=== PATIENT | male | born 1945 | race Caucasian/White ===

== ENCOUNTER 2018-05-14 14:29 | Inpatient (IN) | payer OTHER ==
[~2018-05-14] VITALS: Ht 175.3 cm; Wt 77.1 kg
--- OUTSIDE RECORDS SUMMARY | 2018-05-14 14:32 | XMS REPORT ---
[facility] Address Unknown Phone Unavailable Care Team Providers Care Travel Registered Nurse Nicu Name Role Phone JUSTYN RAYMOND Unavailable Unavailable ISRAEL PRABHAKAR Unavailable Unavailable Problems This patient has no known problems. Allergies, Adverse Reactions, Alerts This patient has no known allergies or adverse reactions. Medications This patient has no known medications. Results Test Description Test Time Test Comments Text Results Atomic Results Result Comments POCT-ACT 2017-07-04 11:54:00 ACTIVATED CLOTTING TIME (BEAKER) (test mlei=428) 120 sec TESTED AT [place] [address] [id number] 10:43:00* Test Item Value Reference Range Comments ACTIVATED CLOTTING TIME (BEAKER) (test jqwu=176) 301 sec TESTED AT [place] [id number] 10:17:00* Test Item Value Reference Range Comments ACTIVATED CLOTTING TIME (BEAKER) (test qwah=531) 307 sec TESTED AT [place] [id number] 10:17:00* Test Item Value Reference Range Comments ACTIVATED CLOTTING TIME (BEAKER) (test usnz=347) 318 sec TESTED AT [place] [id number] 10:17:00* Test Item Value Reference Range Comments ACTIVATED CLOTTING TIME (BEAKER) (test wyge=700) 296 sec TESTED AT [place] [address] [id number] 10:17:00* Test Item Value Reference Range Comments ACTIVATED CLOTTING TIME (BEAKER) (test mokq=407) 257 sec TESTED AT [place] [address] [id number] 06:55:00* Test Item Value Reference Range Comments MAGNESIUM (BEAKER) (test oauf=524) 1.9 mg/dL 1.6-2.6 BASIC METABOLIC [id number] 06:55:00* Test Item Value Reference Range Comments SODIUM (BEAKER) (test dzrn=066) 140 meq/L 136-145 POTASSIUM (BEAKER) (test mrlv=424) 4.0 meq/L 3.5-5.1 CHLORIDE (BEAKER) (test ncso=811) 103 meq/L 98-107 CO2 (BEAKER) (test hfvm=834) 29 meq/L 22-29 BLOOD UREA NITROGEN (BEAKER) (test vkaf=795) 22 mg/dL 7-21 CREATININE (BEAKER) (test licl=251) 1.03 mg/dL 0.57-1.25 GLUCOSE RANDOM (BEAKER) (test qtto=903) 105 mg/dL 70-105 CALCIUM (BEAKER) (test qqpy=932) 8.9 mg/dL 8.4-10.2 EGFR (BEAKER) (test ijkc=3805) 71 mL/min/1.73 sq m ESTIMATED GFR IS NOT ACCURATE CREATININE CLEARANCE IN PREDICTING GLOMERULAR FILTRATION RATE. ESTIMATED GFR IS NOT APPLICABLE FOR DIALYSIS PATIENTS. PROTHROMBIN [id number] 06:46:00* Test Item Value Reference Range Comments PROTIME (BEAKER) (test vtga=981) 14.7 seconds 11.7-14.7 INR (BEAKER) (test dbxm=835) 1.2 <=5.9 RECOMMENDED COUMADIN/WARFARIN INR THERAPY RANGESSTANDARD DOSE: 2.0 - 3.0 Inclu alyson: PROPHYLAXIS for venous thrombosis, systemic embolization; TREATMENT for fatimah ous thrombosis and/or pulmonary embolus.HIGH RISK: Target INR is 2.5-3.5 for pat ients with mechanical heart valves.Within 24 hours, if on CoumadinCBC W/PLT COUNT & AUTO [id number] 06:36:00* Test Item Value Reference Range Comments WHITE BLOOD CELL COUNT (BEAKER) (test dghq=269) 7.9 K/ L 3.5-10.5 RED BLOOD CELL COUNT (BEAKER) (test bfqf=917) 4.16 M/ L 4.63-6.08 HEMOGLOBIN (BEAKER) (test hyei=753) 13.5 GM/DL 13.7-17.5 HEMATOCRIT (BEAKER) (test kzjl=547) 39.3 % 40.1-51.0 MEAN CORPUSCULAR VOLUME (BEAKER) (test hjpb=328) 94.5 fL 79.0-92.2 MEAN CORPUSCULAR HEMOGLOBIN (BEAKER) (test rtak=094) 32.5 pg 25.7-32.2 MEAN CORPUSCULAR HEMOGLOBIN CONC (BEAKER) (test tobs=267) 34.4 GM/DL 32.3-36.5 RED CELL DISTRIBUTION WIDTH (BEAKER) (test oylm=136) 12.1 % 11.6-14.4 PLATELET COUNT (BEAKER) (test iltr=538) 299 K/CU MM 150-450 MEAN PLATELET VOLUME (BEAKER) (test spzo=959) 8.7 fL 9.4-12.4 NUCLEATED RED BLOOD CELLS (BEAKER) (test mhwk=834) 0 /100 WBC 0-0 NEUTROPHILS RELATIVE PERCENT (BEAKER) (test xgtj=639) 65 % LYMPHOCYTES RELATIVE PERCENT (BEAKER) (test elxi=971) 26 % MONOCYTES RELATIVE PERCENT (BEAKER) (test iuyq=157) 8 % EOSINOPHILS RELATIVE PERCENT (BEAKER) (test jgxj=762) 0 % BASOPHILS RELATIVE PERCENT (BEAKER) (test rmru=494) 0 % NEUTROPHILS ABSOLUTE COUNT (BEAKER) (test iqkt=192) 5.12 K/ L 1.78-5.38 LYMPHOCYTES ABSOLUTE COUNT (BEAKER) (test cijg=025) 2.04 K/ L 1.32-3.57 MONOCYTES ABSOLUTE COUNT (BEAKER) (test stba=813) 0.62 K/ L 0.30-0.82 EOSINOPHILS ABSOLUTE COUNT (BEAKER) (test zmdl=955) 0.03 K/ L 0.04-0.54 BASOPHILS ABSOLUTE COUNT (BEAKER) (test uqyr=175) 0.02 K/ L 0.01-0.08 IMMATURE GRANULOCYTES-RELATIVE PERCENT (BEAKER) (test vlsv=4409) 1 % 0-1 CT, HEART, [id number] 15:20:00Reason for Exam:->sob, a-fibAddendum BeginsREPORT STATUS:A Addendum: I agree with the previously described non vascular findings by Dr. Ordaz. Signed: Abe Chang MDReport Verified Date/Time: 07/03/2017 15:20:50 Reading Location: [place] [address] Angio Body Reading RoomAddendum EndsFINAL REPORT CT ang iography of the pulmonary veins, 03 July 2017 INDICATION: This is a 72 ye ars old male with history of atrial fibrillation presented here for pulmonary v ein ostial mapping. This study is performed in an attempt to avoid invasive proc edure. TECHNIQUE: Spiral acquisition during intravenous contrast administration using a [employer] multidetector cardiac CT scanner without prospective ECG trigge ring. Multiplanar reconstructions were performed interactively by the interpret ing physician using an independent (smsPREP) workstation. Please refer to the con trast sheet scanned in the EPIC system for the amount and route of contrast give n. This exam was performed according to our departmental dose-optimisation progr amme, which includes automated exposure control, adjustment of the mA and/or kV according to patient size and/or use of iterative reconstruction technique. Dose modulation, iterative reconstruction, and/or weight based adjustment of the mA/ kV was utilized to reduce the radiation dose to as low as reasonably achievable. FINDINGS: VASCULAR: The pericardium appears normal. No pericardial effusion is identified. The central pulmonary artery is normal in calibre. The thoracic aor ta is normal in course, calibre, and contour. There is no evidence for acute aor tic pathology. The arch vessel branching pattern is normal, and the origins of t he arch branch vessels are all widely patent. The cardiac chambers demonstrate n ormal atrioventricular and ventriculoarterial concordance, and systemic and pulm onary venous return. The left ventricle is normal in size, and no abnormal becca s are identified. The coronary artery origins are normal. Scattered calcificat ion is seen in the LAD territory. Left atrial enlargement is identified. Right a trial enlargement is also seen. Incidental note, prominent prominent khadijah term inalis is identified, a common finding. No thrombus is visualized in the left at rial appendage. Pulmonary vein morphology is normal with pairs of pulmonary vein s on each side of the left atrium. There is no evidence for pulmonary vein steno sis. Quantitative pulmonary vein ostial mapping (measured utilizing MPR analysis ) is as follows: Pulmonary vein Major axis Minor axis Cross-sectional area Rig ht upper 18 mm 17 mm 2.4 mr9Ojjti lower 16 mm 14 mm 1.7 oy9Bgbe upper 16 mm 12 mm 1.5 nl1Nwfp lower 18 mm 9 mm 1.3 cm2 NON-VASCULAR: The visualised thyroid gland appears unrem arkable. The chest wall and mediastinum appears normal. No significant adenopath y is identified in the mediastinum. In the lung windows, no obvious endobronchia l lesion is seen and no pleural effusion is identified. Some apical scarring is present. Some dependent changes are seen in the lung bases. No suspicious pulmon argenis nodule is noted. Limited images of the upper abdomen reveals no gross abnorm ality. Similar appearing liver cyst is identified in the anterior aspect of the right hepatic lobe, image 45, measures 4.2 x 4.1 cm in diameter. No enhancement is seen after contrast administration. In the bony windows, no acute bony pathol ogy is seen. IMPRESSIONS: 1. The left atrium is prominent. The left atrial joel endage is well identified and no thrombus is present. Coronary atherosclerosis seen in the LAD territory. 2. Pulmonary vein morphology is normal with pairs of pulmonary veins bilaterally. There is no evidence for pulmonary vein stenosis. Quantitative pulmonary vein ostial mapping is as noted above. 3. Normal thorac ic aorta. 4. No acute pulmonary pathology. 5. Other findings as described abov e. 6. An addendum will be dictated regarding the non-vascular findings by the C onsultant Radiologist. Signed: Morris Ordaz MDReport Verified Date/Time: 0 07/03/2017 10:37:36 Reading Location: [place] [address] Cardiology MRI [facility] [place] [place] signed by: ABE CHANG MD on 07/03/2017 03:20 PM [id number] 09:43:00* Test Item Value Reference Range Comments PARTIAL THROMBOPLASTIN TIME (BEAKER) (test btzl=635) 25.2 seconds 22.5-36.0 PROTHROMBIN TIME/[id number] 09:42:00* Test Item Value Reference Range Comments PROTIME (BEAKER) (test coen=221) 14.2 seconds 11.7-14.7 INR (BEAKER) (test nols=160) 1.1 <=5.9 RECOMMENDED COUMADIN/WARFARIN INR THERAPY RANGESSTANDARD DOSE: 2.0 - 3.0 Inclu alyson: PROPHYLAXIS for venous thrombosis, systemic embolization; TREATMENT for fatimah ous thrombosis and/or pulmonary embolus.HIGH RISK: Target INR is 2.5-3.5 for pat ients with mechanical heart valves.[id number] 09:41:00* Test Item Value Reference Range Comments SODIUM (BEAKER) (test lpej=782) 142 meq/L 136-145 POTASSIUM (BEAKER) (test vyco=885) 4.5 meq/L 3.5-5.1 CHLORIDE (BEAKER) (test vggf=256) 102 meq/L 98-107 CO2 (BEAKER) (test puuy=669) 31 meq/L 22-29 BUN AND [id number] 09:41:00* Test Item Value Reference Range Comments BLOOD UREA NITROGEN (BEAKER) (test spmr=567) 21 mg/dL 7-21 CREATININE (BEAKER) (test outk=050) 1.12 mg/dL 0.57-1.25 EGFR (BEAKER) (test cipv=9002) 64 mL/min/1.73 sq m ESTIMATED GFR IS NOT ACCURATE CREATININE CLEARANCE IN PREDICTING GLOMERULAR FILTRATION RATE. ESTIMATED GFR IS NOT APPLICABLE FOR DIALYSIS PATIENTS. CBC (HEMOGRAM ONLY)2017-07-03 09:22:00* Test Item Value Reference Range Comments WHITE BLOOD CELL COUNT (BEAKER) (test qqdt=869) 8.4 K/ L 3.5-10.5 RED BLOOD CELL COUNT (BEAKER) (test kwcz=751) 4.58 M/ L 4.63-6.08 HEMOGLOBIN (BEAKER) (test yfxh=861) 14.8 GM/DL 13.7-17.5 HEMATOCRIT (BEAKER) (test pqtw=396) 43.1 % 40.1-51.0 MEAN CORPUSCULAR VOLUME (BEAKER) (test abax=947) 94.1 fL 79.0-92.2 MEAN CORPUSCULAR HEMOGLOBIN (BEAKER) (test pvup=636) 32.3 pg 25.7-32.2 MEAN CORPUSCULAR HEMOGLOBIN CONC (BEAKER) (test whjg=572) 34.3 GM/DL 32.3-36.5 RED CELL DISTRIBUTION WIDTH (BEAKER) (test vfic=895) 12.0 % 11.6-14.4 PLATELET COUNT (BEAKER) (test ogoq=683) 319 K/CU MM 150-450 MEAN PLATELET VOLUME (BEAKER) (test shmr=325) 8.6 fL 9.4-12.4 NUCLEATED RED BLOOD CELLS (BEAKER) (test faqa=985) 0 /100 WBC 0-0 BLOOD [id number] 05:02:00* Test Item Value Reference Range Comments CULTURE (BEAKER) (test pkae=6147) No growth in 5 days BLOOD [id number] 05:02:00* Test Item Value Reference Range Comments CULTURE (BEAKER) (test saqx=9247) No growth in 5 days STOOL CULTURE + SHIGA [id number] 12:38:00* Test Item Value Reference Range Comments CULTURE (BEAKER) (test ucqd=6970) No Salmonella, Shigella or Campylobacter isolated URINE [id number] 12:36:00* Test Item Value Reference Range Comments CULTURE (BEAKER) (test codj=2860) >100,000 col/mL skin virginie HEPATIC FUNCTION [id number] 05:41:00* Test Item Value Reference Range Comments TOTAL PROTEIN (BEAKER) (test fjok=284) 5.2 gm/dL 6.0-8.3 Specimen slightly hemolyzed ALBUMIN (BEAKER) (test hlrr=6712) 2.9 g/dL 3.5-5.0 Specimen slightly hemolyzed BILIRUBIN TOTAL (BEAKER) (test cwgg=376) 1.0 mg/dL 0.2-1.2 Specimen slightly hemolyzed BILIRUBIN DIRECT (BEAKER) (test hqdr=273) 0.4 mg/dL 0.1-0.5 Specimen slightly hemolyzed ALKALINE PHOSPHATASE (BEAKER) (test ughj=148) 64 U/L 40-150 AST (SGOT) (BEAKER) (test gobu=855) 40 U/L 5-34 Specimen slightly hemolyzed ALT (SGPT) (BEAKER) (test cjtm=144) 17 U/L 6-55 Specimen slightly hemolyzed [id number] 05:31:00* Test Item Value Reference Range Comments MAGNESIUM (BEAKER) (test nrkf=885) 1.9 mg/dL 1.6-2.6 Specimen slightly hemolyzed [id number] 05:31:00* Test Item Value Reference Range Comments PHOSPHORUS (BEAKER) (test zzvv=312) 2.7 mg/dL 2.3-4.7 Specimen slightly hemolyzed BASIC METABOLIC [id number] 05:31:00* Test Item Value Reference Range Comments SODIUM (BEAKER) (test ubnn=322) 139 meq/L 136-145 POTASSIUM (BEAKER) (test ydxn=898) 3.9 meq/L 3.5-5.1 Specimen slightly hemolyzed CHLORIDE (BEAKER) (test zkvt=225) 107 meq/L 98-107 CO2 (BEAKER) (test ezfv=510) 25 meq/L 22-29 BLOOD UREA NITROGEN (BEAKER) (test uoes=880) 14 mg/dL 7-21 CREATININE (BEAKER) (test gphy=929) 1.07 mg/dL 0.57-1.25 Specimen slightly hemolyzed GLUCOSE RANDOM (BEAKER) (test bcgw=751) 98 mg/dL 70-105 CALCIUM (BEAKER) (test przy=441) 8.2 mg/dL 8.4-10.2 EGFR (BEAKER) (test kzdz=9808) 68 mL/min/1.73 sq m ESTIMATED GFR IS NOT ACCURATE CREATININE CLEARANCE IN PREDICTING GLOMERULAR FILTRATION RATE. ESTIMATED GFR IS NOT APPLICABLE FOR DIALYSIS PATIENTS. B-TYPE NATRIURETIC FACTOR (BNP)2017-05-25 05:21:00* Test Item Value Reference Range Comments B-TYPE NATRIURETIC PEPTIDE (BEAKER) (test xthy=981) 52 pg/mL 0-100 CBC W/PLT COUNT & AUTO [id number] 05:04:00* Test Item Value Reference Range Comments WHITE BLOOD CELL COUNT (BEAKER) (test sovo=358) 8.6 K/ L 3.5-10.5 RED BLOOD CELL COUNT (BEAKER) (test lfef=258) 3.59 M/ L 4.63-6.08 HEMOGLOBIN (BEAKER) (test uuup=232) 11.7 GM/DL 13.7-17.5 HEMATOCRIT (BEAKER) (test wfxk=215) 33.9 % 40.1-51.0 MEAN CORPUSCULAR VOLUME (BEAKER) (test rrcv=484) 94.4 fL 79.0-92.2 MEAN CORPUSCULAR HEMOGLOBIN (BEAKER) (test duqj=544) 32.6 pg 25.7-32.2 MEAN CORPUSCULAR HEMOGLOBIN CONC (BEAKER) (test jcsy=223) 34.5 GM/DL 32.3-36.5 RED CELL DISTRIBUTION WIDTH (BEAKER) (test qvzb=044) 11.9 % 11.6-14.4 PLATELET COUNT (BEAKER) (test dmhb=033) 169 K/CU MM 150-450 MEAN PLATELET VOLUME (BEAKER) (test uadh=377) 9.2 fL 9.4-12.4 NUCLEATED RED BLOOD CELLS (BEAKER) (test bfbn=706) 0 /100 WBC 0-0 NEUTROPHILS RELATIVE PERCENT (BEAKER) (test nvxg=166) 75 % LYMPHOCYTES RELATIVE PERCENT (BEAKER) (test coxk=899) 16 % MONOCYTES RELATIVE PERCENT (BEAKER) (test fyhq=455) 7 % EOSINOPHILS RELATIVE PERCENT (BEAKER) (test vkxi=692) 1 % BASOPHILS RELATIVE PERCENT (BEAKER) (test ypgg=655) 0 % NEUTROPHILS ABSOLUTE COUNT (BEAKER) (test ohen=679) 6.49 K/ L 1.78-5.38 LYMPHOCYTES ABSOLUTE COUNT (BEAKER) (test zseg=676) 1.41 K/ L 1.32-3.57 MONOCYTES ABSOLUTE COUNT (BEAKER) (test rjam=594) 0.62 K/ L 0.30-0.82 EOSINOPHILS ABSOLUTE COUNT (BEAKER) (test hmvl=324) 0.04 K/ L 0.04-0.54 BASOPHILS ABSOLUTE COUNT (BEAKER) (test ghwx=541) 0.03 K/ L 0.01-0.08 IMMATURE GRANULOCYTES-RELATIVE PERCENT (BEAKER) (test mgyx=2242) 0 % 0-1 SHIGA TOXIN [id number] 14:40:00* Test Item Value Reference Range Comments SHIGA TOXIN 1 (BEAKER) (test auuf=7721) Not detected Not detected SHIGA TOXIN 2 (BEAKER) (test sdox=8212) Not detected Not detected RAD, CHEST, 1 VIEW, NON [id number] 12:57:00Reason for exam:->sobFINAL REPORT HISTORY : sob. Comparison: None Comment: Single portable view of the chest was obtained. The cardiac silhouette size is upper limits of normal. No pneumothorax or pleural effusion is seen. Some fixation hardware is seen in the right shoulder. There is some patchy left basilar airspace disease which may represent atelectasis. Pneumonitis or aspiration cannot be excluded. Signed: Bautista Barnard MDReport Verified Date/Time: 05/24/2017 12:57:49 Reading Location: [address] Reading Room L PATH [id number] 10:53:00* Test Item Value Reference Range Comments PATHOGEN EXAM CHARGED (BEAKER) (test qimv=7810) Done [id number] 07:58:00* Test Item Value Reference Range Comments PHOSPHORUS (BEAKER) (test txrg=560) 2.1 mg/dL 2.3-4.7 [id number] 07:58:00* Test Item Value Reference Range Comments MAGNESIUM (BEAKER) (test kxov=922) 1.7 mg/dL 1.6-2.6 BASIC METABOLIC [id number] 07:58:00* Test Item Value Reference Range Comments SODIUM (BEAKER) (test uxns=094) 140 meq/L 136-145 POTASSIUM (BEAKER) (test xpjv=634) 4.0 meq/L 3.5-5.1 CHLORIDE (BEAKER) (test ipro=132) 109 meq/L 98-107 CO2 (BEAKER) (test kqqo=478) 24 meq/L 22-29 BLOOD UREA NITROGEN (BEAKER) (test rxst=340) 20 mg/dL 7-21 CREATININE (BEAKER) (test iemc=773) 1.11 mg/dL 0.57-1.25 GLUCOSE RANDOM (BEAKER) (test svap=072) 96 mg/dL 70-105 CALCIUM (BEAKER) (test zrvc=822) 8.1 mg/dL 8.4-10.2 EGFR (BEAKER) (test kqeu=5141) 65 mL/min/1.73 sq m ESTIMATED GFR IS NOT ACCURATE CREATININE CLEARANCE IN PREDICTING GLOMERULAR FILTRATION RATE. ESTIMATED GFR IS NOT APPLICABLE FOR DIALYSIS PATIENTS. CBC W/PLT COUNT & AUTO [id number] 07:44:00* Test Item Value Reference Range Comments WHITE BLOOD CELL COUNT (BEAKER) (test vpci=252) 12.1 K/ L 3.5-10.5 RED BLOOD CELL COUNT (BEAKER) (test ymme=515) 3.67 M/ L 4.63-6.08 HEMOGLOBIN (BEAKER) (test bzep=145) 11.9 GM/DL 13.7-17.5 HEMATOCRIT (BEAKER) (test byhu=291) 35.1 % 40.1-51.0 MEAN CORPUSCULAR VOLUME (BEAKER) (test dntq=064) 95.6 fL 79.0-92.2 MEAN CORPUSCULAR HEMOGLOBIN (BEAKER) (test wmat=471) 32.4 pg 25.7-32.2 MEAN CORPUSCULAR HEMOGLOBIN CONC (BEAKER) (test jtfi=840) 33.9 GM/DL 32.3-36.5 RED CELL DISTRIBUTION WIDTH (BEAKER) (test tzpg=866) 12.2 % 11.6-14.4 PLATELET COUNT (BEAKER) (test erms=073) 174 K/CU MM 150-450 MEAN PLATELET VOLUME (BEAKER) (test sjbx=953) 9.5 fL 9.4-12.4 NUCLEATED RED BLOOD CELLS (BEAKER) (test wjgp=366) 0 /100 WBC 0-0 NEUTROPHILS RELATIVE PERCENT (BEAKER) (test srjy=403) 81 % LYMPHOCYTES RELATIVE PERCENT (BEAKER) (test artz=622) 11 % MONOCYTES RELATIVE PERCENT (BEAKER) (test ccpa=089) 7 % EOSINOPHILS RELATIVE PERCENT (BEAKER) (test limv=208) 0 % BASOPHILS RELATIVE PERCENT (BEAKER) (test gjsi=229) 0 % NEUTROPHILS ABSOLUTE COUNT (BEAKER) (test kzhu=947) 9.86 K/ L 1.78-5.38 LYMPHOCYTES ABSOLUTE COUNT (BEAKER) (test rqdx=232) 1.29 K/ L 1.32-3.57 MONOCYTES ABSOLUTE COUNT (BEAKER) (test cuko=388) 0.88 K/ L 0.30-0.82 EOSINOPHILS ABSOLUTE COUNT (BEAKER) (test tsqq=534) 0.02 K/ L 0.04-0.54 BASOPHILS ABSOLUTE COUNT (BEAKER) (test sywz=073) 0.02 K/ L 0.01-0.08 IMMATURE GRANULOCYTES-RELATIVE PERCENT (BEAKER) (test fltv=5054) 1 % 0-1 [id number] 18:11:00* Test Item Value Reference Range Comments PHOSPHORUS (BEAKER) (test rkmr=087) 2.7 mg/dL 2.3-4.7 [id number] 18:11:00* Test Item Value Reference Range Comments MAGNESIUM (BEAKER) (test sbeq=319) 1.8 mg/dL 1.6-2.6 BASIC METABOLIC [id number] 18:11:00* Test Item Value Reference Range Comments SODIUM (BEAKER) (test lgqv=583) 140 meq/L 136-145 POTASSIUM (BEAKER) (test obdq=444) 3.7 meq/L 3.5-5.1 CHLORIDE (BEAKER) (test xvwm=387) 108 meq/L 98-107 CO2 (BEAKER) (test sbgr=278) 24 meq/L 22-29 BLOOD UREA NITROGEN (BEAKER) (test hdcm=769) 25 mg/dL 7-21 CREATININE (BEAKER) (test oybw=274) 1.29 mg/dL 0.57-1.25 GLUCOSE RANDOM (BEAKER) (test ggih=649) 113 mg/dL 70-105 CALCIUM (BEAKER) (test mzyk=686) 8.5 mg/dL 8.4-10.2 EGFR (BEAKER) (test jkbv=0057) 55 mL/min/1.73 sq m ESTIMATED GFR IS NOT ACCURATE CREATININE CLEARANCE IN PREDICTING GLOMERULAR FILTRATION RATE. ESTIMATED GFR IS NOT APPLICABLE FOR DIALYSIS PATIENTS. CBC W/PLT COUNT & AUTO [id number] 17:42:00* Test Item Value Reference Range Comments WHITE BLOOD CELL COUNT (BEAKER) (test tnpn=554) 16.3 K/ L 3.5-10.5 RED BLOOD CELL COUNT (BEAKER) (test wcqx=370) 4.00 M/ L 4.63-6.08 HEMOGLOBIN (BEAKER) (test rmfp=816) 13.0 GM/DL 13.7-17.5 HEMATOCRIT (BEAKER) (test huxu=593) 37.7 % 40.1-51.0 MEAN CORPUSCULAR VOLUME (BEAKER) (test qgju=630) 94.3 fL 79.0-92.2 MEAN CORPUSCULAR HEMOGLOBIN (BEAKER) (test tosi=596) 32.5 pg 25.7-32.2 MEAN CORPUSCULAR HEMOGLOBIN CONC (BEAKER) (test dcll=238) 34.5 GM/DL 32.3-36.5 RED CELL DISTRIBUTION WIDTH (BEAKER) (test ivod=855) 12.2 % 11.6-14.4 PLATELET COUNT (BEAKER) (test yzzz=632) 200 K/CU MM 150-450 MEAN PLATELET VOLUME (BEAKER) (test vubf=874) 9.0 fL 9.4-12.4 NUCLEATED RED BLOOD CELLS (BEAKER) (test zhih=939) 0 /100 WBC 0-0 NEUTROPHILS RELATIVE PERCENT (BEAKER) (test azsa=195) 83 % LYMPHOCYTES RELATIVE PERCENT (BEAKER) (test tumi=572) 9 % MONOCYTES RELATIVE PERCENT (BEAKER) (test tvbb=313) 8 % EOSINOPHILS RELATIVE PERCENT (BEAKER) (test tjvy=205) 0 % BASOPHILS RELATIVE PERCENT (BEAKER) (test elpg=302) 0 % NEUTROPHILS ABSOLUTE COUNT (BEAKER) (test hqgg=625) 13.44 K/ L 1.78-5.38 LYMPHOCYTES ABSOLUTE COUNT (BEAKER) (test jsfw=903) 1.39 K/ L 1.32-3.57 MONOCYTES ABSOLUTE COUNT (BEAKER) (test gpkb=056) 1.27 K/ L 0.30-0.82 EOSINOPHILS ABSOLUTE COUNT (BEAKER) (test ygom=243) 0.00 K/ L 0.04-0.54 BASOPHILS ABSOLUTE COUNT (BEAKER) (test unjf=878) 0.02 K/ L 0.01-0.08 IMMATURE GRANULOCYTES-RELATIVE PERCENT (BEAKER) (test wxqq=4329) 1 % 0-1 CLOSTRIDIUM DIFFICILE TOXIN [id number] 13:48:00* Test Item Value Reference Range Comments CLOSTRIDIUM DIFFICILE TOXIN, PCR (BEAKER) (test nrps=8012) Not Detected Not Detected This qualitative real-time polymerase chain reaction assay detects the tcdB gene , encoded on the C.difficile pathogenicity locus (PaLoc). The product of tcdB, toxin B, is a cytotoxin essential for causing C.difficile-associated disease (CD AD) and is found in virtually all toxigenic C.difficile.This assay is performed for patients suspected of having either community-acquired or nosocomial CDAD. Accordingly, only symptomatic patients should be tested and formed stools will b e rejected unless ileus is present (i.e., specified when ordering). Patients ma y be colonized with toxigenic C.difficile strains not causing active disease; th erefore, clinical correlation is needed when deciding how to manage patients wit h a positive test result.The assay has not been validated as a test of cure as a mplifiable nucleic acid may persist after effective treatment; therefore, follow -up testing of a positive result is not recommended.URINALYSIS W/ MICROSCOPIC 2017-05-23 12:47:00* Test Item Value Reference Range Comments COLOR (BEAKER) (test hjft=774) Yellow CLARITY (BEAKER) (test kwyi=191) Clear SPECIFIC GRAVITY UA (BEAKER) (test lebf=924) 1.020 1.001-1.035 PH UA (BEAKER) (test tjoh=084) 5.0 5.0-8.0 PROTEIN UA (BEAKER) (test gzso=173) 20 mg/dL Negative GLUCOSE UA (BEAKER) (test ngks=398) Negative Negative KETONES UA (BEAKER) (test mgyh=316) Trace Negative BILIRUBIN UA (BEAKER) (test hcnj=901) Negative Negative BLOOD UA (BEAKER) (test yiyz=648) Negative Negative NITRITE UA (BEAKER) (test bbev=657) Negative Negative LEUKOCYTE ESTERASE UA (BEAKER) (test hgrn=648) Negative Negative UROBILINOGEN UA (BEAKER) (test eymd=493) 0.2 mg/dL 0.2-1.0 RBC UA (BEAKER) (test bkvp=235) 0 /HPF WBC UA (BEAKER) (test errg=324) 1 /HPF SQUAMOUS EPITHELIAL (BEAKER) (test alnf=589) < /HPF HYALINE CASTS (BEAKER) (test neem=488) 1 /LPF SOURCE(BEAKER) (test zcfp=1520) Urine, Straight Catheter PT/[id number] 18:19:00* Test Item Value Reference Range Comments PROTIME (BEAKER) (test cukr=845) 11.0 seconds 9.8-12.0 INR (BEAKER) (test rfxl=965) 1.0 <=5.9 PARTIAL THROMBOPLASTIN TIME (BEAKER) (test ebrj=608) 20.5 seconds 25.8-34.5 RECOMMENDED COUMADIN/WARFARIN INR THERAPY RANGESSTANDARD DOSE: 2.0 - 3.0 Inclu alyson: PROPHYLAXIS for venous thrombosis, systemic embolization; TREATMENT for fatimah ous thrombosis and/or pulmonary embolus.HIGH RISK: Target INR is 2.5-3.5 for pat ients with mechanical heart valves.URINALYSIS W/ [id number] 17:40:00 * Test Item Value Reference Range Comments COLOR (BEAKER) (test xfko=504) Dark Yellow CLARITY (BEAKER) (test ncrn=952) Slightly Cloudy SPECIFIC GRAVITY UA (BEAKER) (test myge=478) 1.025 1.001-1.035 PH UA (BEAKER) (test cvlr=136) 5.0 5.0-8.0 PROTEIN UA (BEAKER) (test duso=727) >=300 mg/dL Negative GLUCOSE UA (BEAKER) (test zwvn=796) Negative Negative KETONES UA (BEAKER) (test sicu=749) 15 mg/dL Negative BILIRUBIN UA (BEAKER) (test vwrd=645) Positive Negative BLOOD UA (BEAKER) (test lqab=076) Trace Negative NITRITE UA (BEAKER) (test xtgz=834) Negative Negative LEUKOCYTE ESTERASE UA (BEAKER) (test auzp=311) Small Negative UROBILINOGEN UA (BEAKER) (test dqun=485) 1.0 mg/dL 0.2-1.0 BACTERIA (BEAKER) (test agxh=267) Moderate RBC UA-MANUAL (BEAKER) (test vutt=2175) <5 /HPF WBC UA-MANUAL (BEAKER) (test nagb=8425) 5-10 /HPF SQUAMOUS EPITHELIAL MANUAL (BEAKER) (test vdej=5273) 5-10 /HPF SOURCE(BEAKER) (test rmau=1283) Short sample.CBC W/PLT COUNT & AUTO [id number] 17:38:00* Test Item Value Reference Range Comments WHITE BLOOD CELL COUNT (BEAKER) (test vyrz=281) 22.1 10e3/ L 4.0-10.0 RED BLOOD CELL COUNT (BEAKER) (test xtcv=860) 5.36 10e6/ L 4.20-5.80 HEMOGLOBIN (BEAKER) (test idwx=045) 17.8 g/dL 13.0-16.8 HEMATOCRIT (BEAKER) (test lktx=081) 51.6 % 40.0-50.0 MEAN CORPUSCULAR VOLUME (BEAKER) (test ytrb=192) 96.3 fL 82.0-98.0 MEAN CORPUSCULAR HEMOGLOBIN (BEAKER) (test vnft=494) 33.1 pg 27.0-33.0 MEAN CORPUSCULAR HEMOGLOBIN CONC (BEAKER) (test yhqe=382) 34.4 g/dL 32.0-36.0 RED CELL DISTRIBUTION WIDTH (BEAKER) (test ekqd=259) 11.6 % 10.3-14.2 PLATELET COUNT (BEAKER) (test uhgy=928) 301 10e3/ L 150-430 MEAN PLATELET VOLUME (BEAKER) (test bzfg=941) 6.8 fL 6.5-10.5 NEUTROPHILS RELATIVE PERCENT (BEAKER) (test paxg=512) 83 % LYMPHOCYTES RELATIVE PERCENT (BEAKER) (test gsnj=803) 9 % MONOCYTES RELATIVE PERCENT (BEAKER) (test qycb=911) 6 % EOSINOPHILS RELATIVE PERCENT (BEAKER) (test mnme=975) 1 % BASOPHILS RELATIVE PERCENT (BEAKER) (test hhjl=395) 1 % NEUTROPHILS ABSOLUTE COUNT (BEAKER) (test ywpw=365) 18.28 10e3/ L 1.80-8.00 LYMPHOCYTES ABSOLUTE COUNT (BEAKER) (test wjyo=681) 2.07 10e3/ L 1.48-4.50 MONOCYTES ABSOLUTE COUNT (BEAKER) (test txbq=959) 1.21 10e3/ L 0.00-1.30 EOSINOPHILS ABSOLUTE COUNT (BEAKER) (test iwhp=977) 0.29 10e3/ L 0.00-0.50 BASOPHILS ABSOLUTE COUNT (BEAKER) (test afaz=064) 0.20 10e3/ L 0.00-0.20 BASIC METABOLIC [id number] 17:36:00* Test Item Value Reference Range Comments SODIUM (BEAKER) (test smkj=268) 140 meq/L 135-148 POTASSIUM (BEAKER) (test dvwh=419) 4.1 meq/L 3.6-5.5 CHLORIDE (BEAKER) (test yqsq=294) 101 meq/L 98-106 CO2 (BEAKER) (test bpeh=243) 22 meq/L 24-32 BLOOD UREA NITROGEN (BEAKER) (test eflk=176) 23 mg/dL 10-26 CREATININE (BEAKER) (test zpij=913) 1.52 mg/dL 0.50-1.20 GLUCOSE RANDOM (BEAKER) (test uouf=336) 173 mg/dL 70-110 CALCIUM (BEAKER) (test gvjy=272) 9.9 mg/dL 8.5-10.5 EGFR (BEAKER) (test fcff=8797) mL/min/1.73 sq m INSUFFICIENT CLINICAL DATA TO CALCULATE ESTIMATED GFR. HEPATIC FUNCTION [id number] 17:34:00* Test Item Value Reference Range Comments TOTAL PROTEIN (BEAKER) (test uwlm=634) 7.9 gm/dL 6.0-8.5 ALBUMIN (BEAKER) (test qnty=0583) 4.4 g/dL 3.5-5.0 BILIRUBIN TOTAL (BEAKER) (test ukie=281) 1.2 mg/dL 0.1-1.2 BILIRUBIN DIRECT (BEAKER) (test hmvh=396) 0.5 mg/dL 0.0-0.4 ALKALINE PHOSPHATASE (BEAKER) (test uytu=209) 214 U/L 30-115 AST (SGOT) (BEAKER) (test yjzj=351) 39 U/L 5-40 ALT (SGPT) (BEAKER) (test hnmn=878) 32 U/L 5-50 [id number] 17:34:00* Test Item Value Reference Range Comments LIPASE (BEAKER) (test dnpz=580) 252 U/L 40-240 CT, [id number] 17:23:00FINAL REPORT CT abdomen and pelvis without intravenous contrast. INDICATION: Flank pain, stone disease suspectedno oral contrast; no iv contrast COMPARISON: No prior studies available for comparison. TECHNIQUE: Multiple contiguous transaxial images of the abdomen and pelvis were obtained without intravenous contrast. This exam was performed according to our departmental dose optimization program which includes automated exposure control, adjustment of the mA and/or kV according to patient size and/or use of iterative reconstructive technique. FINDINGS: Lack of intravenous contrast limits evaluation of the parenchymal and vascular organs. The lung bases demonstrate mild atelectasis. The osseous structures demonstrate bilateral L5 spondylolysis with mild spondylolisthesis of L5 on S1 and associated degenerative changes. The unenhanced liver demonstrates a lobulated cyst in the hepatic dome measuring 4.6 x 4.9 cm. Another small cyst is seen in the caudate lobe. The spleen, pancreas, and adrenal glands are unremarkable. The stomach is distended containing fluid and ingested material. There is a small hiatus hernia. The gallbladder is unremarkable. There is no biliary dilatation. Both kidneys are small in size without stones or hydronephrosis. The urinary bladder is unremarkable. No pelvic masses are seen. There is a small amount of fluid in the right inguinal canal. There are diffusely distended small and large bowel loops containing fluid and ingested material, suggestive of nonspecific enterocolitis of infectious or inflammatory etiology although low-grade obstruction cannot be entirely excluded. A close follow-up examination can be performed as clinically indicated. There is associated mild pericolonic fat stranding and inflammatory changes in the descending and sigmoid colon. There is sigmoid colonic diverticulosis. Atherosclerotic vascular calcifications are see n. There is no fluid collection or lymphadenopathy. The appendix is not clearly visualized. IMPRESSION:1. Diffusely distended and fluid-filled small and large b owel loops suggestive of nonspecific enterocolitis as above.2. Sigmoid colonic d iverticulosis.3. Hepatic cysts.4. Small hiatus hernia.5. Bilateral L5 spondyloly sis. Signed: Bo Bae MDReport Verified Date/Time: 05/22/2017 17:23:33 Lo valladares Location: [facility] B1 [id number] [facility] Consult Reading Room
--- OUTSIDE RECORDS SUMMARY | 2018-05-14 14:32 | XMS REPORT | Clinical Summary ---
Author Author THOMAS [facility] Address Unknown Phone Unavailable Care Team Providers Care Trap Setter Name Role Phone JohnsonOliver Andrae PCP Allergies Comments Active Allergy Reactions Severity Noted Date nausea Fluorouracil Nausea Only 08/29/2014 Medications End Date Status Medication Sig Dispensed Refills Start Date Active amLODIPine (NORVASC) 5 MG TAKE ONE 0 02/18/201 tablet TABLET BY 7 MOUTH EVERY DAY FOR BLOOD PRESSURE Active atorvastatin (LIPITOR) 20 TAKE ONE 0 03/31/201 MG tablet TABLET BY 7 MOUTH EVERY DAY Active flunisolide (NASALIDE) 25 USE 2 SPRAYS 0 04/03/ mcg (0.025 %) Clay IN EACH 7 NOSTRIL TWO TIMES A DAY Active HYDROcodone-homatropine Take 5 mLs by 0 12/03/ (HYCODAN) 5-1.5 mg/5 mL mouth. 7 syrup Active ramipril (ALTACE) 10 MG TAKE ONE 0 201 capsule CAPSULE BY 7 MOUTH EVERY DAY Active sildenafil (VIAGRA) 100 Take 100 mg 0 MG tablet by mouth. 6 Active omeprazole (PRILOSEC) 20 TAKE TWO 0 02/18/201 MG capsule CAPSULES BY 7 MOUTH EVERY DAY Active apixaban (ELIQUIS) 5 mg Take 1 tablet 0 Tab tablet (5 mg total) 7 by mouth 2 (two) times daily. 05/25/2017 Discontinued apixaban (ELIQUIS) 2.5 mg Take 2.5 mg 0 Tab tablet by mouth 2 (two) times daily. 05/25/2017 Discontinued omeprazole (PRILOSEC) 20 Take 20 mg by 0 MG capsule mouth daily. 05/25/2017 Discontinued apixaban (ELIQUIS) 5 mg Take 5 mg by 0 Tab tablet mouth. 7 05/30/2017 levoFLOXacin (LEVAQUIN) Take 1 tablet 5 tablet 0 500 MG tablet (500 mg 7 total) by mouth daily for 5 days. 05/30/2017 metroNIDAZOLE (FLAGYL) Take 1 tablet 15 tablet 0 500 MG tablet (500 mg 7 total) by mouth 3 (three) times daily for 5 days. 06/04/2017 simethicone (MYLICON) 80 Take 1 tablet 30 tablet 0 MG chewable tablet (80 mg total) 7 by mouth every 6 (six) hours as needed for Flatulence for up to 10 days. Active Problems Problem Noted Date A-fib 07/04/2017 Enterocolitis 05/24/2017 Colitis 05/22/2017 Diarrhea, unspecified type 05/22/2017 Encounters Care Team Description Date Type Specialty Scott Porter AA 07/04/2017 Anesthesia Event Enrique Newman MD EPS & ABLATION 07/04/2017 Surgery Enrique Newman MD Atrial fibrillation, unspecified type (HCC) 07/04/2017 Hospital Cardiology - Encounter 07/05/2017 07/04/2017 Orders Only General Internal Medicine Enrique Newman MD Atrial fibrillation, unspecified type (HCC); SOB (shortness of breath) 07/03/2017 Hospital Cardiology Encounter Enrique Newman MD Atrial fibrillation, unspecified type (HCC); SOB (shortness of breath) 07/03/2017 Hospital Radiology Encounter Enrique Newman MD Atrial fibrillation, unspecified type (HCC) (Primary Dx); SOB (shortness of breath) 07/03/2017 Outside Orders Central Scheduling Kyle Arellano MD Ali, Vannessa Brennan MD Diarrhea, unspecified type (Primary Dx); Non-intractable vomiting with nausea, unspecified vomiting type; Colitis 05/22/2017 Hospital General Internal Medicine - Encounter 05/25/2017 after 05/13/2017 Social History Date Tobacco Use Types Packs/Day Years Used Never Smoker Smokeless Tobacco: Never Used Alcohol Use Drinks/Week oz/Week Comments Yes occassionally Sex Assigned at Date Recorded Not on file Industry Job Start Date Occupation Not on file Not on file Not on file Travel End Travel History Travel Start No recent travel history available. Last Filed Vital Signs Time Taken Vital Sign Reading 07/05/2017 7:17 AM [employer] Blood Pressure 112/59 07/05/2017 7:17 AM [employer] Pulse 76 07/05/2017 7:17 AM [employer] Temperature 36.8 C (98.3 F) 07/05/2017 7:17 AM [employer] Respiratory Rate 18 07/05/2017 7:17 AM [employer] Oxygen Saturation 93% - Inhaled Oxygen - Concentration 07/05/2017 7:17 AM [employer] Weight 71.3 kg (157 lb 3.2 oz) 07/04/2017 5:52 AM [employer] Height 177.8 cm (5' 10") 07/05/2017 7:17 AM [employer] Body Mass Index 22.56 Plan of Treatment Not on file Procedures Comments Procedure Name Priority Date/Time Associated Diagnosis CARDIAC CATH REPORT - 07/11/2017 SCAN 9:21 PM [employer] RHYTHM STRIP - SCAN 07/08/2017 11:11 AM [employer] TRANSFUSION SERVICE 07/05/2017 REPORT - SCAN 5:41 PM [employer] POCT-ACT Routine 07/04/2017 11:46 AM [employer] POCT-ACT Routine 07/04/2017 10:36 AM [employer] POCT-ACT Routine 07/04/2017 10:06 AM [employer] POCT-ACT Routine 07/04/2017 9:50 AM [employer] POCT-ACT Routine 07/04/2017 9:40 AM [employer] POCT-ACT Routine 07/04/2017 9:26 AM [employer] EPS & ABLATION 07/04/2017 AFIB AFLUTTLER CARTO 7:05 AM [employer] SOUND CV ANES I48.0 Case Notes (1) CASE POP6 AFIB AFLUTTER CARTO SOUND CV ANES ECG 12-LEAD Routine 07/04/2017 6:44 AM [employer] Procedure Note - Interface, External Ris In - 07/04/2017 10:44 AM [employer] Ventricula r Rate 51 BPM Atrial Rate 51 BPM P-R Interval 126 ms QRS Duration 80 ms Q-T Interval 438 ms QTC Calculatio n(Bazett) 403 ms P Palmer 67 degrees R Palmer 18 degrees T Palmer 47 degrees Sinus bradycardi a Otherwise normal ECG When compared with ECG of 7 13:06, Criteria for Inferior infarct are no longer Present ECG 12-LEAD Routine 07/04/2017 6:44 AM [employer] CBC W/PLT COUNT & AUTO STAT 07/04/2017 DIFFERENTIAL 6:06 AM [employer] TYPE AND SCREEN, STAT 07/04/2017 AUTOMATED 6:06 AM [employer] PROTHROMBIN TIME/INR STAT 07/04/2017 6:06 AM [employer] CBC W/PLT COUNT & AUTO STAT 07/04/2017 DIFFERENTIAL 6:06 AM [employer] MAGNESIUM STAT 07/04/2017 6:06 AM [employer] BASIC METABOLIC PANEL (7) STAT 07/04/2017 6:06 AM [employer] ECHOCARDIOGRAM REPORT - 07/03/2017 SCAN 3:21 PM [employer] TRANSESOPHAGEAL ECHO Routine 07/03/2017 Atrial fibrillation, 10:09 AM [employer] unspecified type (HCC) SOB (shortness of breath) COLOR-FLOW MAPPING Routine 07/03/2017 Atrial fibrillation, 10:05 AM [employer] unspecified type (HCC) SOB (shortness of breath) CONT WAVE PULSED DOPPLER Routine 07/03/2017 Atrial fibrillation, 10:05 AM [employer] unspecified type (HCC) SOB (shortness of breath) CT HEART WITH/WITHOUT Routine 07/03/2017 Atrial fibrillation, GATING & 3D 10:05 AM [employer] unspecified type (HCC) SOB (shortness of breath) ELECTROLYTE PANEL Routine 07/03/2017 Atrial fibrillation, 9:08 AM [employer] unspecified type (HCC) SOB (shortness of breath) BUN AND CREATININE Routine 07/03/2017 Atrial fibrillation, 9:08 AM [employer] unspecified type (HCC) SOB (shortness of breath) CBC (HEMOGRAM ONLY) Routine 07/03/2017 Atrial fibrillation, 9:08 AM [employer] unspecified type (HCC) SOB (shortness of breath) APTT Routine 07/03/2017 Atrial fibrillation, 9:08 AM [employer] unspecified type (HCC) SOB (shortness of breath) PROTHROMBIN TIME/INR Routine 07/03/2017 Atrial fibrillation, 9:08 AM [employer] unspecified type (HCC) SOB (shortness of breath) CBC W/PLT COUNT & AUTO Routine 05/25/2017 DIFFERENTIAL 4:20 AM [employer] HEPATIC FUNCTION PANEL Routine 05/25/2017 4:20 AM [employer] B-TYPE NATRIURETIC FACTOR Routine 05/25/2017 (BNP) 4:20 AM [employer] CBC W/PLT COUNT & AUTO Routine 05/25/2017 DIFFERENTIAL 4:20 AM [employer] PHOSPHORUS Routine 05/25/2017 4:20 AM [employer] MAGNESIUM Routine 05/25/2017 4:20 AM [employer] BASIC METABOLIC PANEL (7) Routine 05/25/2017 4:20 AM [employer] ECG 12-LEAD GUERO 05/24/2017 1:06 PM [employer] XR CHEST 1 VIEW GUERO 05/24/2017 PORTABLE/BEDSIDE 12:21 PM [employer] CBC W/PLT COUNT & AUTO Routine 05/24/2017 DIFFERENTIAL 5:46 AM [employer] CBC W/PLT COUNT & AUTO Routine 05/24/2017 DIFFERENTIAL 5:46 AM [employer] PHOSPHORUS Routine 05/24/2017 5:46 AM [employer] MAGNESIUM Routine 05/24/2017 5:46 AM [employer] BASIC METABOLIC PANEL (7) Routine 05/24/2017 5:46 AM [employer] CBC W/PLT COUNT & AUTO Routine 05/23/2017 DIFFERENTIAL 5:22 PM [employer] PHOSPHORUS Routine 05/23/2017 5:22 PM [employer] MAGNESIUM Routine 05/23/2017 5:22 PM [employer] BASIC METABOLIC PANEL (7) Routine 05/23/2017 5:22 PM [employer] CBC W/PLT COUNT & AUTO Routine 05/23/2017 DIFFERENTIAL 5:22 PM [employer] STOOL PATH CHARGE Routine 05/23/2017 9:25 AM [employer] URINALYSIS W/ MICROSCOPIC Routine 05/23/2017 9:25 AM [employer] SHIGA TOXIN SCREEN Routine 05/23/2017 9:25 AM [employer] URINE CULTURE Routine 05/23/2017 9:25 AM [employer] CLOSTRIDIUM DIFFICILE Routine 05/23/2017 TOXIN PCR 9:25 AM [employer] STOOL CULTURE + SHIGA Routine 05/23/2017 TOXIN 9:25 AM [employer] BLOOD CULTURE STAT 05/22/2017 6:43 PM [employer] BLOOD CULTURE STAT 05/22/2017 6:43 PM [employer] CBC W/PLT COUNT & AUTO STAT 05/22/2017 DIFFERENTIAL 5:15 PM [employer] PT/APTT STAT 05/22/2017 5:15 PM [employer] URINALYSIS W/ MICROSCOPIC STAT 05/22/2017 5:15 PM [employer] CBC W/PLT COUNT & AUTO STAT 05/22/2017 DIFFERENTIAL 5:15 PM [employer] LIPASE STAT 05/22/2017 5:15 PM [employer] HEPATIC FUNCTION PANEL STAT 05/22/2017 5:15 PM [employer] BASIC METABOLIC PANEL (7) STAT 05/22/2017 5:[address] [address] [address] ABDOMEN/PELVIS WITHOUT STAT 05/22/2017 IV CONTRAST 4:54 PM [employer] after 05/13/2017 Results * CARDIAC CATH REPORT - SCAN (07/11/2017 9:21 PM [employer]) Narrative Performed At * RHYTHM STRIP - SCAN (07/08/2017 11:11 AM [employer]) Narrative Performed At * TRANSFUSION SERVICE REPORT - SCAN (07/05/2017 5:41 PM [employer]) Narrative Performed At * POC ACTIVATED CLOTTING TIME (07/04/2017 11:46 AM [employer]ANCE [employer]ILLER) Only the most recent of 6 results within the time period is included. Activated Clotting Time 120Comment: TESTED AT [facility] sec [address] Specimen Blood Performing Organization Address City/[facility]/[place] [address] [facility] * ECG 12 lead (07/04/2017 6:44 AM [employer]ANCE [employer]) Only the most recent of 2 results within the time period is included. Narrative Performed At Ventricular Rate 51 BPM GE MUSE Atrial Rate 51 BPM P-R Interval 126 ms QRS Duration 80 ms Q-T Interval 438 ms QTC Calculation(Bazett) 403 ms P Palmer 67 degrees R Palmer 18 degrees T Palmer 47 degrees Sinus bradycardia Otherwise normal ECG When compared with ECG of 24-MAY-2017 13:06, Criteria for Inferior infarct are no longer Present Confirmed by MD GARZA JORGE ([id number]) on 07/04/2017 2:59:57 PM Procedure Note Interface, External Ris In - 07/04/2017 3:00 PM [employer] Ventricular Rate 51 BPM Atrial Rate 51 BPM P-R Interval 126 ms QRS Duration 80 ms Q-T Interval 438 ms QTC Calculation(Bazett) 403 ms P Palmer 67 degrees R Palmer 18 degrees T Palmer 47 degrees Sinus bradycardia Otherwise normal ECG When compared with ECG of 24-MAY-2017 13:06, Criteria for Inferior infarct are no longer Present Confirmed by MD GARZA JORGE ([id number]) on 07/04/2017 2:59:57 PM Performing Organization Address City/State/Zipcode Phone Number [employer] MUSE * Type and screen, automated (07/04/2017 6:06 AM [employer] INS[employer]ANCE [employer]ILL[employer]) ABO/RH AUTOMATED (BEAKER) O POSITIVE [facility] Ab Scrn NEGATIVE [facility] Specimen Blood Performing Organization Address City/State/Zipcode Phone Number [facility] [address] [place] [address] [facility] * CBC with platelet count + automated diff (07/04/2017 6:06 AM [employer] INS[employer]ANCE [employer]) Only the most recent of 5 results within the time period is included. WBC 7.9 3.5 - 10.5 K/L [facility] RBC 4.16 (L) 4.63 - 6.08 M/L [facility] Hemoglobin 13.5 (L) 13.7 - 17.5 GM/DL [facility] Hematocrit 39.3 (L) 40.1 - 51.0 % [facility] MCV 94.5 (H) 79.0 - 92.2 fL [facility] MCH 32.5 (H) 25.7 - 32.2 pg [facility] MCHC 34.4 32.3 - 36.5 GM/DL [facility] RDW 12.1 11.6 - 14.4 % [facility] Platelets 299 150 - 450 K/CU MM [facility] MPV 8.7 (L) 9.4 - 12.4 fL [facility] nRBC 0 0 - 0 /100 WBC [facility] % Neutros 65 % [facility] % Lymphs 26 % [facility] % Monos 8 % [facility] % Eos 0 % [facility] % Baso 0 % [facility] # Neutros 5.12 1.78 - 5.38 K/L [facility] # Lymphs 2.04 1.32 - 3.57 K/L [facility] # Monos 0.62 0.30 - 0.82 K/L [facility] # Eos 0.03 (L) 0.04 - 0.54 K/L [facility] # Baso 0.02 0.01 - 0.08 K/L [facility] Immature 1 0 - 1 % [facility] Granulocytes-Relative [facility] Specimen Blood Performing Organization Address City/[facility]/Zipcode Phone Number [address] [address] [facility] * Prothrombin time/INR (07/04/2017 6:06 AM [employer]ANCE [employer]) Only the most recent of 2 results within the time period is included. Protime 14.7 11.7 - 14.7 seconds [facility] INR 1.2 <=5.9 [facility] Specimen Blood Narrative Performed At RECOMMENDED COUMADIN/WARFARIN INR THERAPY RANGES [facility] STANDARD DOSE: 2.0 - 3.0 Includes: PROPHYLAXIS for venous thrombosis, [facility] systemic embolization; TREATMENT for venous thrombosis and/or pulmonary embolus. HIGH RISK: Target INR is 2.5-3.5 for patients with mechanical heart valves. Within 24 hours, if on Coumadin Performing Organization Address City/[facility] Phone Number [address] [address] [facility] * Magnesium (07/04/2017 6:06 AM [employer]ANCE [employer]ER) Only the most recent of 4 results within the time period is included. Magnesium 1.9 1.6 - 2.6 mg/dL [facility] Specimen Blood Performing Organization Address City/[facility]/Zipcode Phone Number [address] [address] [facility] * Basic metabolic panel (07/04/2017 6:06 AM [employer]) Only the most recent of 5 results within the time period is included. Sodium 140 136 - 145 meq/L [facility] Potassium 4.0 3.5 - 5.1 meq/L [facility] Chloride 103 98 - 107 meq/L [facility] CO2 29 22 - 29 meq/L [facility] BUN 22 (H) 7 - 21 mg/dL [facility] Creatinine 1.03 0.57 - 1.25 mg/dL [facility] Glucose 105 70 - 105 mg/dL [facility] Calcium 8.9 8.4 - 10.2 mg/dL [facility] EGFR 71Comment: ESTIMATED GFR IS mL/min/1.[address] [facility] NOT ACCURATE CREATININE [facility] CLEARANCE IN PREDICTING GLOMERULAR FILTRATION RATE. ESTIMATED GFR IS NOT APPLICABLE FOR DIALYSIS PATIENTS. Specimen Blood Performing Organization Address City/State/Zipcode Phone Number [facility] [address] [place] [address] [facility] * ECHOCARDIOGRAM REPORT - SCAN (07/03/2017 3:21 PM [employer]) Narrative Performed At * Transesophageal echo (07/03/2017 10:09 AM [employer]ICAL INS[employer]ANCE [employer]ILLER) Ejection Fraction [facility] ECHO HEART[facility] Narrative Performed At Transesophageal Echocardiography Report (JD) [facility] ECHO [facility]ART[facility] Demographics [facility] Patient Name NAFISA FALL Date of Study 07/03/2017 BENITO FELIZ [id number] Male Visit Number [id number] Room Number op Number Date of Birth1945Referring Physician Trent Nunez MD Age72 year(s)Architect Manager Samy Bae MD [facility] ician Fellow Jessica Holt MD Procedure Type of Study JD procedure:TRANSESOPHAGEAL ECHO Indications:Atrial fibrillation. Clinical History HLD,GASTRITUS,GERD,HTN,A-FIB,DIVERTICULITIS Height: 69 inches Weight: 73.48 kg (162 lbs) BSA: 1.89 m^2 BMI: 23.92 kg/m^2 HR: 56 bpm BP: 131/63 mmHg Procedure Informed Consent JD procedure notes The patient was counseled and informed consent was obtained. Topical and intravenous anesthesia was administered. The esophagus was intubated without difficulty. The probe was passed and all standard echocardiographic views were obtained. IV saline contrast echo examination was performed with JD. The patient tolerated the procedure well.. - See IV sedation record Signature Findings Rhythm/BP Sinus bradycardia. LeftNormal left ventricular chamber size. Normal wall thickness. Ventricle Normal overall left ventricular systolic function. Left Atrium No evidence of left atrial or left atrial appendage thrombus. Normal LAYNE emptying velocities. Right The right ventricular chamber size and systolic function are Ventricle within normal limits. Right AtriumNo mass or thrombus is seen in the right atrium. Atrial Septum Normal interatrial septum by available views. Aortic ValveNormal AoV structure. There is no aortic regurgitation. Mitral ValveNormal MV structure. Trace mitral regurgitation. Tricuspid TV structure is normal. Valve A trace of tricuspid regurgitation. Insufficient TR to calculate PASP. PulmonicPV is not well visualized. Valve Aorta Aortic root size (SInus of Valsalva diameter) is normal . Proximal ascending aorta size is normal . There is focal aortic atheroma in the following location: descending thoracic aorta . There is focal aortic atheroma in the following location: descending thoracic aorta . Pericardium No pericardial effusion is visualized. Procedure Note Interface, External Ris In - 07/03/2017 2:50 PM [employer]ICAL INS[employer]ANCE BILLER Transesophageal Echocardiography Report (JD) Demographics Patient Name NAFISA FALL Date of Study 07/03/2017 BENITO FELIZ Gender Male Visit Number [id number] Race Unknown Room Number op Number Date of 1945 Referring Physician Trent Nunez MD Age 72 year(s) Architect Manager Samy Galaviz Interpreting Juan M Bae MD Physician Fellow Jessica Holt MD Procedure Type of Study JD procedure:TRANSESOPHAGEAL ECHO Indications:Atrial fibrillation. Clinical History HLD,GASTRITUS,GERD,HTN,A-FIB,DIVERTICULITIS Height: 69 inches Weight: 73.48 kg (162 lbs) BSA: 1.89 m^2 BMI: 23.92 kg/m^2 HR: 56 bpm BP: 131/63 mmHg Procedure Informed Consent JD procedure notes The patient was counseled and informed consent was obtained. Topical and intravenous anesthesia was administered. The esophagus was intubated without difficulty. The probe was passed and all standard echocardiographic views were obtained. IV saline contrast echo examination was performed with JD. The patient tolerated the procedure well.. - See IV sedation record Signature Findings Rhythm/BP Sinus bradycardia. Left Normal left ventricular chamber size. Normal wall thickness. Ventricle Normal overall left ventricular systolic function. Left Atrium No evidence of left atrial or left atrial appendage thrombus. Normal LAYNE emptying velocities. Right The right ventricular chamber size and systolic function are Ventricle within normal limits. Right Atrium No mass or thrombus is seen in the right atrium. Atrial Septum Normal interatrial septum by available views. Aortic Valve Normal AoV structure. There is no aortic regurgitation. Mitral Valve Normal MV structure. Trace mitral regurgitation. Tricuspid TV structure is normal. Valve A trace of tricuspid regurgitation. Insufficient TR to calculate PASP. Pulmonic PV is not well visualized. Valve Aorta Aortic root size (SInus of Valsalva diameter) is normal . Proximal ascending aorta size is normal . There is focal aortic atheroma in the following location: descending thoracic aorta . There is focal aortic atheroma in the following location: descending thoracic aorta . Pericardium No pericardial effusion is visualized. Performing Organization Address City/State/Zipcode Phone Number [facility] ECHO [facility] * CT heart without & with gating & 3d (07/03/2017 10:05 AM MEDICAL INSURANCE BILLER) Narrative Performed At Addendum Begins [facility] REPORT STATUS:A Addendum: I agree with the previously described non vascular findings by Dr. Ordaz. Signed: Abe Chang MD Report Verified Date/Time:07/03/2017 15:20:50 Reading Location: [place] [address] Angio Body Reading Room Addendum Ends FINAL REPORT CT angiography of the pulmonary veins, 03 July 2017 INDICATION: This is a 72years old malewith history of atrial fibrillation presented here for pulmonary vein ostial mapping. This study is performed in an attempt to avoid invasive procedure. TECHNIQUE:Spiral acquisition during intravenous contrast administration using a Flakita multidetector cardiac CT scanner without prospective ECG triggering.Multiplanar reconstructions were performed interactively by the interpreting physician using an independent ([facility]) workstation. Please refer to the contrast sheet scanned in the [employer] system for the amount and route of contrast given. This exam was performed according to our departmental dose-optimisation programme, which includes automated exposure control, adjustment of the mA and/or kV according to patient size and/or use of iterative reconstruction technique. Dose modulation, iterative reconstruction, and/or weight based adjustment of the mA/kV was utilized to reduce the radiation dose to as low as reasonably achievable. FINDINGS: VASCULAR: The pericardium appears normal. No pericardial effusion is identified. The central pulmonary artery is normal in calibre. The thoracic aorta is normal in course, calibre, and contour. There is no evidence for acute aortic pathology. The arch vessel branching pattern is normal, and the origins of the arch branch vessels are all widely patent. The cardiac chambers demonstrate normal atrioventricular and ventriculoarterial concordance, and systemic and pulmonary venous return. The left ventricle is normal in size, and no abnormal masses are identified. The coronary artery origins are normal. Scattered calcification is seen in the LAD territory. Left atrial enlargement is identified. Right atrial enlargement is also seen. Incidental note, prominent prominent khadijah terminalis is identified, a common finding. No thrombus is visualized in the left atrial appendage. Pulmonary vein morphology is normal with pairs of pulmonary veins on each side of the left atrium. There is no evidence for pulmonary vein stenosis. Quantitative pulmonary vein ostial mapping (measured utilizing MPR analysis) is as follows: Pulmonary veinMajor axisMinor axisCross-sectional area * Right upper 18 mm 17 mm2.4 cm2 Right lower 16 mm 14 mm1.7 cm2 Left upper16 mm 12 mm1.5 cm2 Left lower 18 mm 9 mm1.3 cm2 NON-VASCULAR: The visualised thyroid gland appears unremarkable. The chest wall and mediastinum appears normal. No significant adenopathy is identified in the mediastinum. In the lung windows, no obvious endobronchial lesion is seen and no pleural effusion is identified. Some apical scarring is present. Some dependent changes are seen in the lung bases. No suspicious pulmonary nodule is noted. Limited images of the upper abdomen reveals no gross abnormality. Similar appearing liver cyst is identified in the anterior aspect of the right hepatic lobe, image 45, measures 4.2 x 4.1 cm in diameter. No enhancement is seen after contrast administration. In the bony windows, no acute bony pathology is seen. IMPRESSIONS: 1.The left atrium is prominent. The left atrial appendage is well identified and no thrombus is present. Coronary atherosclerosis seen in the LAD territory. 2. Pulmonary vein morphology is normal with pairs of pulmonary veins bilaterally.There is no evidence for pulmonary vein stenosis. Quantitative pulmonary vein ostial mapping is as noted above. 3.Normal thoracic aorta. 4.No acute pulmonary pathology. 5.Other findings as described above. 6.An addendum will be dictated regarding the non-vascular findings by the Customer Service Associate Radiologist. Signed: Morris Ordaz MD Report Verified Date/Time:07/03/2017 10:37:36 Reading Location: [place] [address] Cardiology MRI Procedure Note Interface, External Ris In - 07/03/2017 3:23 PM MEDICAL INSURANCE BILLER Addendum Begins REPORT STATUS:A Addendum: I agree with the previously described non vascular findings by Dr. Ordaz. Signed: Abe Chang MD Report Verified Date/Time: 07/03/2017 15:20:50 Reading Location: [place] [address] Angio Body Reading Room Addendum Ends FINAL REPORT CT angiography of the pulmonary veins, 03 July 2017 INDICATION: This is a 72 years old male with history of atrial fibrillation presented here for pulmonary vein ostial mapping. This study is performed in an attempt to avoid invasive procedure. TECHNIQUE: Spiral acquisition during intravenous contrast administration using a [employer]akita multidetector cardiac CT scanner without prospective ECG triggering. Multiplanar reconstructions were performed interactively by the interpreting physician using an independent ([facility]) workstation. Please refer to the contrast sheet scanned in the EPIC system for the amount and route of contrast given. This exam was performed according to our departmental dose-optimisation programme, which includes automated exposure control, adjustment of the mA and/or kV according to patient size and/or use of iterative reconstruction technique. Dose modulation, iterative reconstruction, and/or weight based adjustment of the mA/kV was utilized to reduce the radiation dose to as low as reasonably achievable. FINDINGS: VASCULAR: The pericardium appears normal. No pericardial effusion is identified. The central pulmonary artery is normal in calibre. The thoracic aorta is normal in course, calibre, and contour. There is no evidence for acute aortic pathology. The arch vessel branching pattern is normal, and the origins of the arch branch vessels are all widely patent. The cardiac chambers demonstrate normal atrioventricular and ventriculoarterial concordance, and systemic and pulmonary venous return. The left ventricle is normal in size, and no abnormal masses are identified. The coronary artery origins are normal. Scattered calcification is seen in the LAD territory. Left atrial enlargement is identified. Right atrial enlargement is also seen. Incidental note, prominent prominent khadijah terminalis is identified, a common finding. No thrombus is visualized in the left atrial appendage. Pulmonary vein morphology is normal with pairs of pulmonary veins on each side of the left atrium. There is no evidence for pulmonary vein stenosis. Quantitative pulmonary vein ostial mapping (measured utilizing MPR analysis) is as follows: Pulmonary vein Major axis Minor axis Cross-sectional area * Right upper 18 mm 17 mm 2.4 cm2 Right lower 16 mm 14 mm 1.7 cm2 Left upper 16 mm 12 mm 1.5 cm2 Left lower 18 mm 9 mm 1.3 cm2 NON-VASCULAR: The visualised thyroid gland appears unremarkable. The chest wall and mediastinum appears normal. No significant adenopathy is identified in the mediastinum. In the lung windows, no obvious endobronchial lesion is seen and no pleural effusion is identified. Some apical scarring is present. Some dependent changes are seen in the lung bases. No suspicious pulmonary nodule is noted. Limited images of the upper abdomen reveals no gross abnormality. Similar appearing liver cyst is identified in the anterior aspect of the right hepatic lobe, image 45, measures 4.2 x 4.1 cm in diameter. No enhancement is seen after contrast administration. In the bony windows, no acute bony pathology is seen. IMPRESSIONS: 1. The left atrium is prominent. The left atrial appendage is well identified and no thrombus is present. Coronary atherosclerosis seen in the LAD territory. 2. Pulmonary vein morphology is normal with pairs of pulmonary veins bilaterally. There is no evidence for pulmonary vein stenosis. Quantitative pulmonary vein ostial mapping is as noted above. 3. Normal thoracic aorta. 4. No acute pulmonary pathology. 5. Other findings as described above. 6. An addendum will be dictated regarding the non-vascular findings by the Customer Service Associate Radiologist. Signed: Morris Ordaz MD Report Verified Date/Time: 07/03/2017 10:37:36 Reading Location: [place] [address] Cardiology MRI Performing Organization Address City/State/Zipcode Phone Number [place] [facility] * BUN and Creatinine (07/03/2017 9:08 AM MEDICAL INSURANCE BILLER) BUN 21 7 - 21 mg/dL [facility] Creatinine 1.12 0.57 - 1.25 mg/dL [facility] EGFR 64Comment: ESTIMATED GFR IS mL/min/1.[address] [facility] NOT ACCURATE CREATININE [facility] CLEARANCE IN PREDICTING GLOMERULAR FILTRATION RATE. ESTIMATED GFR IS NOT APPLICABLE FOR DIALYSIS PATIENTS. Specimen Blood Performing Organization Address City/State/Zipcode Phone Number [address] [address] [facility] * aPTT (07/03/2017 9:08 AM MEDICAL INSURANCE BILLER) PTT 25.2 22.5 - 36.0 seconds [facility] Specimen Blood Performing Organization Address City/[facility] Phone Number [place] [phone] [place] [address] [facility] * CBC (Hemogram only) (07/03/2017 9:08 AM MEDICAL INSURANCE BILLER) WBC 8.4 3.5 - 10.5 K/L [facility] RBC 4.58 (L) 4.63 - 6.08 M/L [facility] Hemoglobin 14.8 13.7 - 17.5 GM/DL [facility] Hematocrit 43.1 40.1 - 51.0 % [facility] MCV 94.1 (H) 79.0 - 92.2 fL [facility] MCH 32.3 (H) 25.7 - 32.2 pg [facility] MCHC 34.3 32.3 - 36.5 GM/DL [facility] RDW 12.0 11.6 - 14.4 % [facility] Platelets 319 150 - 450 K/CU MM [facility] MPV 8.6 (L) 9.4 - 12.4 fL [facility] nRBC 0 0 - 0 /100 WBC [facility] Specimen Blood Performing Organization Address City/[facility]/Zipcode Phone Number [place] [phone] [place] [address] * Electrolytes (07/03/2017 9:08 AM MEDICAL INSURANCE BILLER) Sodium 142 136 - 145 meq/L [facility] Potassium 4.5 3.5 - 5.1 meq/L [facility] Chloride 102 98 - 107 meq/L [facility] CO2 31 (H) 22 - 29 meq/L [facility] Specimen Blood Performing Organization Address [facility] Phone Number [address] * Phosphorus (05/25/2017 4:20 AM MEDICAL INSURANCE BILLER) Only the most recent of 3 results within the time period is included. Phosphorus 2.7Comment: Specimen slightly 2.3 - 4.7 mg/dL [facility] Specimen Blood - Arm, Right Performing Organization Address [facility] Phone Number [address] * B-type Natriuretic Factor (BNP) (05/25/2017 4:20 AM MEDICAL INSURANCE BILLER) BNP 52 0 - 100 pg/mL [facility] Specimen Blood - Arm, Right Performing Organization Address [facility] Phone Number [address] * Hepatic function panel (05/25/2017 4:20 AM MEDICAL INSURANCE BILLER) Only the most recent of 2 results within the time period is included. Protein, Total 5.2 (L)Comment: Specimen 6.0 - 8.3 gm/dL [facility] slightly hemolyzed [facility] Albumin 2.9 (L)Comment: Specimen 3.5 - 5.0 g/dL [facility] slightly hemolyzed [facility] Total Bilirubin 1.0Comment: Specimen slightly 0.2 - 1.2 mg/dL [facility] Bilirubin, Direct 0.4Comment: Specimen slightly 0.1 - 0.5 mg/dL [facility] hemolyzed [facility] Alkaline Phosphatase 64 40 - 150 U/L [facility] AST 40 (H)Comment: Specimen 5 - 34 U/L [facility] slightly hemolyzed [facility] ALT 17Comment: Specimen slightly 6 - 55 U/L [facility] hemolyzed [facility] Specimen Blood - Arm, Right Performing Organization Address City/[facility]/Zipcode Phone Number [facility] [address] [place] [address] [facility] * XR chest 1 view portable / bedside (05/24/2017 12:21 PM MEDICAL INSURANCE BILLER) Narrative Performed At FINAL REPORT RIS HISTORY : sob. Comparison: None Comment: Single portable view of the chest was obtained. The cardiac silhouette size is upper limits of normal. No pneumothorax or pleural effusion is seen. Some fixation hardware is seen in the right shoulder. There is some patchy left basilar airspace disease which may represent atelectasis. Pneumonitis or aspiration cannot be excluded. Signed: Bautista Barnard MD Report Verified Date/Time:05/24/2017 12:57:49 Reading Location: [address] Transitional Reading Room Procedure Note Interface, External Ris In - 05/24/2017 1:00 PM MEDICAL INSURANCE BILLER FINAL REPORT HISTORY : sob. Comparison: None Comment: Single portable view of the chest was obtained. The cardiac silhouette size is upper limits of normal. No pneumothorax or pleural effusion is seen. Some fixation hardware is seen in the right shoulder. There is some patchy left basilar airspace disease which may represent atelectasis. Pneumonitis or aspiration cannot be excluded. Signed: Bautista Barnard MD Report Verified Date/Time: 05/24/2017 12:57:49 Reading Location: [facility] C0[facility] Transitional Reading Room Performing Organization Address City/State/Zipcode Phone Number [facility] * STOOL PATH CHARGE (05/23/2017 9:25 AM MEDICAL INSURANCE BILLER) Pathogen exam charged Done [facility] Specimen Stool - Rectum Performing Organization Address City/[facility] Phone Number [facility] [address] [place] [address] [facility] * Shiga Toxin Screen (05/23/2017 9:25 AM MEDICAL INSURANCE BILLER) Shiga toxin 1 Not detected Not detected [facility] Shiga toxin 2 Not detected Not detected [facility] Specimen Stool - Rectum Performing Organization Address [facility] Phone Number [facility] [address] [place] [address] [facility] * Clostridium difficile Toxin PCR (05/23/2017 9:25 AM MEDICAL INSURANCE BILLER) C.Diff Toxin, PCR Not Detected Not Detected [facility] Specimen Stool - Stool Narrative Performed At This qualitative real-time polymerase chain reaction assay detects the tcdB [facility] gene, encoded on the C.difficile pathogenicity locus (PaLoc).The product of [facility] tcdB, toxin B, is a cytotoxin essential for causing C.difficile-associated disease (CDAD) and is found in virtually all toxigenic C.difficile. This assay is performed for patients suspected of having either community-acquired or nosocomial CDAD.Accordingly, only symptomatic patients should be tested and formed stools will be rejected unless ileus is present (i.e., specified when ordering).Patients may be colonized with toxigenic C.difficile strains not causing active disease; therefore, clinical correlation is needed when deciding how to manage patients with a positive test result. The assay has not been validated as a test of cure as amplifiable nucleic acid may persist after effective treatment; therefore, follow-up testing of a positive result is not recommended. Performing Organization Address City/[facility] Phone Number [facility] [address] [place] [address] [facility] * Urinalysis w/Microscopic (05/23/2017 9:25 AM MEDICAL INSURANCE BILLER) Only the most recent of 2 results within the time period is included. Color, UA Yellow [facility] Clarity, UA Clear [facility] Specific [place], UA 1.020 1.001 - 1.035 [facility] pH, UA 5.0 5.0 - 8.0 [facility] Protein, UA 20 mg/dL (A) Negative [facility] Glucose, UA Negative Negative [facility] Ketones, UA Trace (A) Negative [facility] Bilirubin, UA Negative Negative [facility] Blood, UA Negative Negative [facility] Nitrite, UA Negative Negative [facility] Leukocytes, UA Negative Negative [facility] Urobilinogen, UA 0.2 0.2 - 1.0 mg/dL [facility] RBC, UA 0 /HPF [facility] WBC, UA 1 /HPF [facility] Squam Epithel, UA <1 /HPF [facility] Hyaline Casts, UA 1 /LPF [facility] Specimen Source Urine, Straight Catheter [facility] Specimen Urine - Urine, Straight Catheter Performing Organization Address City/[facility] Phone Number [place] [phone] * Urine culture (05/23/2017 9:25 AM MEDICAL INSURANCE BILLER) Result >100,000 col/mL skin virginie [facility] Specimen Urine - Urine, Straight Catheter Performing Organization Address [facility] [place] [address] [phone] * Stool culture + Shiga toxin (05/23/2017 9:25 AM MEDICAL INSURANCE BILLER) Result No Salmonella, Shigella or [facility] Specimen Stool - Rectum Performing Organization Address [facility] Phone Number [facility] [address] [place], [place] [phone] [facility] * Blood culture (05/22/2017 6:43 PM MEDICAL INSURANCE BILLER) Only the most recent of 2 results within the time period is included. Result No growth in 5 days [facility] Specimen Blood - Arm, Right Performing Organization Address [facility] Phone Number [facility] [address] [place], [place] [phone] [facility] * PT/aPTT (05/22/2017 5:15 PM MEDICAL INSURANCE BILLER) Protime 11.0 9.8 - 12.0 seconds [facility] INR 1.0 <=5.9 [facility] [place] PTT 20.5 (L) 25.8 - 34.5 seconds [facility] [place] Specimen Blood Narrative Performed At RECOMMENDED COUMADIN/WARFARIN INR THERAPY RANGES [facility] STANDARD DOSE: 2.0 - 3.0 Includes: PROPHYLAXIS for venous thrombosis, [facility] systemic embolization; TREATMENT for venous thrombosis and/or pulmonary embolus. [place] HIGH RISK: Target INR is 2.5-3.5 for patients with mechanical heart valves. [facility], [facility] Performing Organization Address [facility] Phone Number [facility] [address] [place] [address] [facility] * Lipase (05/22/2017 5:15 PM MEDICAL INSURANCE BILLER) Lipase 252 (H) 40 - 240 U/L [facility] [place] Specimen Blood Performing Organization Address [facility] Phone Number [facility] [address] [place] [address] [facility] [place] [facility] * CT abdomen pelvis without contrast (05/22/2017 4:54 PM MEDICAL INSURANCE BILLER) Narrative Performed At FINAL REPORT [employer] [facility] CT abdomen and pelvis without intravenous contrast. INDICATION: Flank pain, stone disease suspected no oral contrast; no iv contrast COMPARISON: No prior studies available for comparison. TECHNIQUE: Multiple contiguous transaxial images of the abdomen and pelvis were obtained without intravenous contrast.This exam was performed according to our departmental [...] sigmoid colonic diverticulosis. Atherosclerotic vascular calcifications are seen. There is no fluid collection or lymphadenopathy. The appendix is not clearly visualized. IMPRESSION: 1. Diffusely distended and fluid-filled small and large bowel loops suggestive of nonspecific enterocolitis as above. 2. Sigmoid colonic diverticulosis. 3. Hepatic cysts. 4. Small hiatus hernia. 5. Bilateral L5 spondylolysis. Signed: Bo Bae MD Report Verified Date/Time:05/22/2017 17:23:33 Reading Location: [facility] [id number] [facility] Consult Reading Room Procedure Note Interface, External Ris In - 05/22/2017 5:25 PM MEDICAL INSURANCE BILLER FINAL REPORT CT abdomen and pelvis without intravenous contrast. INDICATION: Flank pain, stone disease suspected no oral contrast; no iv contrast COMPARISON: No [...] sigmoid colonic diverticulosis. Atherosclerotic vascular calcifications are seen. There is no fluid collection or lymphadenopathy. The appendix is not clearly visualized. IMPRESSION: 1. Diffusely distended and fluid-filled small and large bowel loops suggestive of nonspecific enterocolitis as above. 2. Sigmoid colonic diverticulosis. 3. Hepatic cysts. 4. Small hiatus hernia. 5. Bilateral L5 spondylolysis. Signed: Bo Bae MD Report Verified Date/Time: 05/22/2017 17:23:33 Reading Location: [facility] C0X [facility] Consult Reading Room Performing Organization Address City/State/Zipcode Phone Number [place] after 05/13/2017 Insurance Payer Benefit Subscriber ID Type Phone Address Plan / Group [employer] xxxxxxxxx [facility] ALL Contracted Advance Directives For more information, please contact: [address] [address] Date Inactivated Comments Code Status Date Activated 07/05/2017 12:38 PM Full Code 07/04/2017 5:47 AM This code status was determined by: Patient 07/03/2017 11:03 AM Full Code 07/03/2017 10:35 AM This code status was determined by: Patient 05/25/2017 2:01 PM Full Code 05/23/2017 8:27 AM This code status was determined by: Patient
[2018-05-14] MEDS ORDERED: ASPIRIN 81 MG CHEW TAB PO ONE ×2 (14:45→17:15)
[2018-05-14 15:16] LABS: BASOPHILS % 0.5 % (0.0-1.0); EOSINOPHILS # (AUTO) 0.1 (0.0-0.4); EOSINOPHILS % 1.7 % (0.0-6.0); HEMATOCRIT 39.3 % (38.2-49.6); HEMOGLOBIN 13.8 g/dL (14.0-18.0); LYMPHOCYTES # (AUTO) 1.8 (1.0-3.2); LYMPHOCYTES % 22.8 % (18.0-39.1); MEAN CORPUSCULAR HEMOGLOBIN 32.5 pg (28-32); MEAN CORPUSCULAR HGB CONC 35.1 g/dL (31-35); MEAN CORPUSCULAR VOLUME 92.7 fL (81-99); MONOCYTES # (AUTO) 0.5 (0.2-0.8); MONOCYTES % 5.9 % (4.4-11.3); NEUTROPHILS # (AUTO) 5.4 (2.1-6.9); NEUTROPHILS % 68.5 % (38.7-80.0); PLATELET COUNT 272 x10e3/uL (140-360); RED BLOOD COUNT 4.24 x10e6/uL (4.3-5.7); RED CELL DISTRIBUTION WIDTH 12.2 % (11.7-14.4)
[2018-05-14 15:22] LABS: INR 0.88; PROTHROMBIN TIME 12.8 seconds (11.9-14.5)
[2018-05-14 15:23] LABS: PARTIAL THROMBOPLASTIN TIME 26.7 seconds (23.8-35.5)
[2018-05-14 15:29] LABS: BILIRUBIN,URINE NEGATIVE (NEGATIVE); CLARITY,URINE CLEAR (CLEAR); COLOR,URINE YELLOW (YELLOW); KETONES,URINE NEGATIVE (NEGATIVE); LEUKOCYTE ESTERASE ,URINE NEGATIVE (NEGATIVE); NITRITE,URINE NEGATIVE (NEGATIVE); PROTEIN,URINE DIPSTICK NEGATIVE (NEGATIVE); URINE UROBILINOGEN 0.2 mg/dL (0.2 - 1)
[2018-05-14 15:33] LABS: ALANINE AMINOTRANSFERASE 17 IU/L (0-55); ALBUMIN 3.7 g/dL (3.5-5.0); ALKALINE PHOSPHATASE 82 IU/L (40-150); ANION GAP 14.1 mmol/L (8-16); BLOOD UREA NITROGEN 17 mg/dL (7-26); BUN/CREATININE RATIO 15 (6-25); CALCIUM 9.8 mg/dL (8.4-10.2); CARBON DIOXIDE 30 mmol/L (22-29); CHLORIDE 98 mmol/L (98-107); CREATINE KINASE 83 IU/L (30-200); CREATININE, SERUM 1.16 mg/dL (0.72-1.25); EST GLOMERULAR FILTRATION RATE > 60 ML/MIN (60-); GLUCOSE 161 mg/dL (74-118); POTASSIUM 3.1 mmol/L (3.5-5.1); SODIUM 139 mmol/L (136-145)
--- NOTE | 2018-05-14 16:14 | Diagnostic Imaging Report ---
Frontal and lateral views of the chest. HISTORY: Chest pain, flulike symptoms COMPARISON: None available. DISCUSSION: Lungs: Low lung volumes result in bibasilar vascular crowding, accentuation of the pulmonary interstitial markings, central pulmonary vasculature, and the cardiac silhouette. Allowing for these limitations, the findings are as follows: Left basilar atelectasis versus scarring, lingular. Central peribronchial interstitial prominence. No evidence of a consolidative pneumonia or pulmonary alveolar edema. Pleura: No pleural effusion or pneumothorax. Heart and mediastinum: The cardiomediastinal silhouette appears unremarkable. Bones: Healed fracture deformity of the distal right clavicle and adjacent mild heterotopic ossification. Osseous anchors at the right humeral head. IMPRESSION: 1. Findings which can be seen in setting of nonspecific bronchitis. 2. Lingular atelectasis versus scarring, superimposed pneumonia may be a consideration in the appropriate setting. Signed by: Dr. Jaime Sosa D.O., M.M.M. on 05/14/2018 4:11 PM
[2018-05-14] MEDS ORDERED: POTASSIUM CHLORIDE 20 MEQ TAB CR PO STA (17:35)
[2018-05-14] MEDS ORDERED: AZITHROMYCIN 500MG/NS 250 ML 250 ML IV ONE (17:45)
--- OUTSIDE RECORDS SUMMARY | 2018-05-14 18:10 | XMS REPORT | Clinical Summary ---
Author Author THOMAS Printio.ruIdaho Falls [facility] HospitalAnv[facility] Organization [facility] Address Unknown Phone Unavailable Care Team Providers Care Erp Specialist Name Role Phone JohnsonOliver Andrae PCP Allergies [...] 2 SPRAYS 0 04/03/ mcg (0.025 %) [place] IN EACH 7 NOSTRIL TWO TIMES A [...] Taken Vital Sign Reading 07/05/2017 7:17 AM MOHS SURGEON/GENERAL DERMATOLOGIST Blood Pressure 112/59 07/05/2017 7:17 AM MOHS SURGEON/GENERAL DERMATOLOGIST Pulse 76 07/05/2017 7:17 AM MOHS SURGEON/GENERAL DERMATOLOGIST Temperature 36.8 C (98.3 F) 07/05/2017 7:17 AM MOHS SURGEON/GENERAL DERMATOLOGIST Respiratory Rate 18 07/05/2017 7:17 AM MOHS SURGEON/GENERAL DERMATOLOGIST Oxygen Saturation 93% - Inhaled Oxygen - Concentration 07/05/2017 7:17 AM MOHS SURGEON/GENERAL DERMATOLOGIST Weight 71.3 kg (157 lb 3.2 oz) 07/04/2017 5:52 AM MOHS SURGEON/GENERAL DERMATOLOGIST Height 177.8 cm (5' 10") 07/05/2017 7:17 AM MOHS SURGEON/GENERAL DERMATOLOGIST Body Mass Index 22.56 Plan of Treatment Not on file Procedures Comments Procedure Name Priority Date/Time Associated Diagnosis CARDIAC CATH REPORT - 07/11/2017 SCAN 9:21 PM MOHS SURGEON/GENERAL DERMATOLOGIST RHYTHM STRIP - SCAN 07/08/2017 11:11 AM MOHS SURGEON/GENERAL DERMATOLOGIST TRANSFUSION SERVICE 07/05/2017 REPORT - SCAN 5:41 PM MOHS SURGEON/GENERAL DERMATOLOGIST POCT-ACT Routine 07/04/2017 11:46 AM MOHS SURGEON/GENERAL DERMATOLOGIST POCT-ACT Routine 07/04/2017 10:36 AM MOHS SURGEON/GENERAL DERMATOLOGIST POCT-ACT Routine 07/04/2017 10:06 AM MOHS SURGEON/GENERAL DERMATOLOGIST POCT-ACT Routine 07/04/2017 9:50 AM MOHS SURGEON/GENERAL DERMATOLOGIST POCT-ACT Routine 07/04/2017 9:40 AM MOHS SURGEON/GENERAL DERMATOLOGIST POCT-ACT Routine 07/04/2017 9:26 AM MOHS SURGEON/GENERAL DERMATOLOGIST EPS & ABLATION 07/04/2017 AFIB AFLUTTLER CARTO 7:05 AM MOHS SURGEON/GENERAL DERMATOLOGIST SOUND CV ANES I48.0 Case Notes (1) CASE POP6 AFIB AFLUTTER CARTO SOUND CV ANES ECG 12-LEAD Routine 07/04/2017 6:44 AM MOHS SURGEON/GENERAL DERMATOLOGIST Procedure Note - Interface, External Ris In - 07/04/2017 10:44 AM MOHS SURGEON/GENERAL DERMATOLOGIST Ventricula r Rate 51 BPM Atrial Rate 51 BPM P-R Interval 126 ms QRS Duration 80 ms Q-T Interval 438 ms QTC Calculatio n(Bazett) 403 ms P [place] 67 degrees R [place] 18 degrees T [place] 47 degrees Sinus bradycardi a Otherwise normal ECG When compared with ECG of 7 13:06, Criteria for Inferior infarct are no longer Present ECG 12-LEAD Routine 07/04/2017 6:44 AM MOHS SURGEON/GENERAL DERMATOLOGIST CBC W/PLT COUNT & AUTO STAT 07/04/2017 DIFFERENTIAL 6:06 AM MOHS SURGEON/GENERAL DERMATOLOGIST TYPE AND SCREEN, STAT 07/04/2017 AUTOMATED 6:06 AM MOHS SURGEON/GENERAL DERMATOLOGIST PROTHROMBIN TIME/INR STAT 07/04/2017 6:06 AM MOHS SURGEON/GENERAL DERMATOLOGIST CBC W/PLT COUNT & AUTO STAT 07/04/2017 DIFFERENTIAL 6:06 AM MOHS SURGEON/GENERAL DERMATOLOGIST MAGNESIUM STAT 07/04/2017 6:06 AM MOHS SURGEON/GENERAL DERMATOLOGIST BASIC METABOLIC PANEL (7) STAT 07/04/2017 6:06 AM MOHS SURGEON/GENERAL DERMATOLOGIST ECHOCARDIOGRAM REPORT - 07/03/2017 SCAN 3:21 PM MOHS SURGEON/GENERAL DERMATOLOGIST TRANSESOPHAGEAL ECHO Routine 07/03/2017 Atrial fibrillation, 10:09 AM MOHS SURGEON/GENERAL DERMATOLOGIST unspecified type (HCC) SOB (shortness of breath) COLOR-FLOW MAPPING Routine 07/03/2017 Atrial fibrillation, 10:05 AM MOHS SURGEON/GENERAL DERMATOLOGIST unspecified type (HCC) SOB (shortness of breath) CONT WAVE PULSED DOPPLER Routine 07/03/2017 Atrial fibrillation, 10:05 AM MOHS SURGEON/GENERAL DERMATOLOGIST unspecified type (HCC) SOB (shortness of breath) CT HEART WITH/WITHOUT Routine 07/03/2017 Atrial fibrillation, GATING & 3D 10:05 AM MOHS SURGEON/GENERAL DERMATOLOGIST unspecified type (HCC) SOB (shortness of breath) ELECTROLYTE PANEL Routine 07/03/2017 Atrial fibrillation, 9:08 AM MOHS SURGEON/GENERAL DERMATOLOGIST unspecified type (HCC) SOB (shortness of breath) BUN AND CREATININE Routine 07/03/2017 Atrial fibrillation, 9:08 AM MOHS SURGEON/GENERAL DERMATOLOGIST unspecified type (HCC) SOB (shortness of breath) CBC (HEMOGRAM ONLY) Routine 07/03/2017 Atrial fibrillation, 9:08 AM MOHS SURGEON/GENERAL DERMATOLOGIST unspecified type (HCC) SOB (shortness of breath) APTT Routine 07/03/2017 Atrial fibrillation, 9:08 AM MOHS SURGEON/GENERAL DERMATOLOGIST unspecified type (HCC) SOB (shortness of breath) PROTHROMBIN TIME/INR Routine 07/03/2017 Atrial fibrillation, 9:08 AM MOHS SURGEON/GENERAL DERMATOLOGIST unspecified type (HCC) SOB (shortness of breath) CBC W/PLT COUNT & AUTO Routine 05/25/2017 DIFFERENTIAL 4:20 AM MOHS SURGEON/GENERAL DERMATOLOGIST HEPATIC FUNCTION PANEL Routine 05/25/2017 4:20 AM MOHS SURGEON/GENERAL DERMATOLOGIST B-TYPE NATRIURETIC FACTOR Routine 05/25/2017 (BNP) 4:20 AM MOHS SURGEON/GENERAL DERMATOLOGIST CBC W/PLT COUNT & AUTO Routine 05/25/2017 DIFFERENTIAL 4:20 AM MOHS SURGEON/GENERAL DERMATOLOGIST PHOSPHORUS Routine 05/25/2017 4:20 AM MOHS SURGEON/GENERAL DERMATOLOGIST MAGNESIUM Routine 05/25/2017 4:20 AM MOHS SURGEON/GENERAL DERMATOLOGIST BASIC METABOLIC PANEL (7) Routine 05/25/2017 4:20 AM MOHS SURGEON/GENERAL DERMATOLOGIST ECG 12-LEAD GUERO 05/24/2017 1:06 PM MOHS SURGEON/GENERAL DERMATOLOGIST XR CHEST 1 VIEW GUERO 05/24/2017 PORTABLE/BEDSIDE 12:21 PM MOHS SURGEON/GENERAL DERMATOLOGIST CBC W/PLT COUNT & AUTO Routine 05/24/2017 DIFFERENTIAL 5:46 AM MOHS SURGEON/GENERAL DERMATOLOGIST CBC W/PLT COUNT & AUTO Routine 05/24/2017 DIFFERENTIAL 5:46 AM MOHS SURGEON/GENERAL DERMATOLOGIST PHOSPHORUS Routine 05/24/2017 5:46 AM MOHS SURGEON/GENERAL DERMATOLOGIST MAGNESIUM Routine 05/24/2017 5:46 AM MOHS SURGEON/GENERAL DERMATOLOGIST BASIC METABOLIC PANEL (7) Routine 05/24/2017 5:46 AM MOHS SURGEON/GENERAL DERMATOLOGIST CBC W/PLT COUNT & AUTO Routine 05/23/2017 DIFFERENTIAL 5:22 PM MOHS SURGEON/GENERAL DERMATOLOGIST PHOSPHORUS Routine 05/23/2017 5:22 PM MOHS SURGEON/GENERAL DERMATOLOGIST MAGNESIUM Routine 05/23/2017 5:22 PM MOHS SURGEON/GENERAL DERMATOLOGIST BASIC METABOLIC PANEL (7) Routine 05/23/2017 5:22 PM MOHS SURGEON/GENERAL DERMATOLOGIST CBC W/PLT COUNT & AUTO Routine 05/23/2017 DIFFERENTIAL 5:22 PM MOHS SURGEON/GENERAL DERMATOLOGIST STOOL PATH CHARGE Routine 05/23/2017 9:25 AM MOHS SURGEON/GENERAL DERMATOLOGIST URINALYSIS W/ MICROSCOPIC Routine 05/23/2017 9:25 AM MOHS SURGEON/GENERAL DERMATOLOGIST SHIGA TOXIN SCREEN Routine 05/23/2017 9:25 AM MOHS SURGEON/GENERAL DERMATOLOGIST URINE CULTURE Routine 05/23/2017 9:25 AM MOHS SURGEON/GENERAL DERMATOLOGIST CLOSTRIDIUM DIFFICILE Routine 05/23/2017 TOXIN PCR 9:25 AM MOHS SURGEON/GENERAL DERMATOLOGIST STOOL CULTURE + SHIGA Routine 05/23/2017 TOXIN 9:25 AM MOHS SURGEON/GENERAL DERMATOLOGIST BLOOD CULTURE STAT 05/22/2017 6:43 PM MOHS SURGEON/GENERAL DERMATOLOGIST BLOOD CULTURE STAT 05/22/2017 6:43 PM MOHS SURGEON/GENERAL DERMATOLOGIST CBC W/PLT COUNT & AUTO STAT 05/22/2017 DIFFERENTIAL 5:15 PM MOHS SURGEON/GENERAL DERMATOLOGIST PT/APTT STAT 05/22/2017 5:15 PM MOHS SURGEON/GENERAL DERMATOLOGIST URINALYSIS W/ MICROSCOPIC STAT 05/22/2017 5:15 PM MOHS SURGEON/GENERAL DERMATOLOGIST CBC W/PLT COUNT & AUTO STAT 05/22/2017 DIFFERENTIAL 5:15 PM MOHS SURGEON/GENERAL DERMATOLOGIST LIPASE STAT 05/22/2017 5:15 PM MOHS SURGEON/GENERAL DERMATOLOGIST HEPATIC FUNCTION PANEL STAT 05/22/2017 5:15 PM MOHS SURGEON/GENERAL DERMATOLOGIST BASIC METABOLIC PANEL (7) STAT 05/22/2017 5:15 PM MOHS SURGEON/GENERAL DERMATOLOGIST CT ABDOMEN/PELVIS WITHOUT STAT 05/22/2017 IV CONTRAST 4:54 PM MOHS SURGEON/GENERAL DERMATOLOGIST after 05/13/2017 Results * CARDIAC CATH REPORT - SCAN (07/11/2017 9:21 PM MOHS SURGEON/GENERAL DERMATOLOGIST) Narrative Performed At * RHYTHM STRIP - SCAN (07/08/2017 11:11 AM MOHS SURGEON/GENERAL DERMATOLOGIST) Narrative Performed At * TRANSFUSION SERVICE REPORT - SCAN (07/05/2017 5:41 PM MOHS SURGEON/GENERAL DERMATOLOGIST) Narrative Performed At * POC ACTIVATED CLOTTING TIME (07/04/2017 11:46 AM MOHS SURGEON/GENERAL DERMATOLOGIST) Only the most recent of 6 results within the time period is included. Activated Clotting Time 120Comment: TESTED AT [facility] sec [address] Specimen Blood Performing Organization Address City/[facility]/[place] [address] [facility] * ECG 12 lead (07/04/2017 6:44 AM MOHS SURGEON/GENERAL DERMATOLOGIST) Only the most recent of 2 results within the time period is included. Narrative Performed At Ventricular Rate 51 BPM GE MUSE Atrial Rate 51 BPM P-R Interval 126 ms QRS Duration 80 ms Q-T Interval 438 ms QTC Calculation(Bazett) 403 ms P [place] 67 degrees R [place] 18 degrees T [place] 47 degrees Sinus bradycardia Otherwise normal ECG When compared with ECG of 24-MAY-2017 13:06, Criteria for Inferior infarct are no longer Present Confirmed by MD GARZA JORGE ([id number]) on 07/04/2017 2:59:57 PM Procedure Note Interface, External Ris In - 07/04/2017 3:00 PM MOHS SURGEON/GENERAL DERMATOLOGIST Ventricular Rate 51 BPM Atrial Rate 51 BPM P-R Interval 126 ms QRS Duration 80 ms Q-T Interval 438 ms QTC Calculation(Bazett) 403 ms P [place] 67 degrees R [place] 18 degrees T [place] 47 degrees Sinus bradycardia Otherwise normal ECG When compared with ECG of 24-MAY-2017 13:06, Criteria for Inferior infarct are no longer Present Confirmed by MD GARZA JORGE ([id number]) on 07/04/2017 2:59:57 PM Performing Organization Address City/State/Zipcode Phone Number [email or web address] * Type and screen, automated (07/04/2017 6:06 AM MOHS SURGEON/GENERAL DERMATOLOGIST) ABO/RH AUTOMATED (BEAKER) O POSITIVE [facility] Ab Scrn NEGATIVE [facility] Specimen Blood Performing Organization Address City/State/Zipcode Phone Number [facility] [address] [place] [address] [facility] * CBC with platelet count + automated diff (07/04/2017 6:06 AM MOHS SURGEON/GENERAL DERMATOLOGIST) Only the most recent of 5 results within the time period is included. WBC 7.9 3.5 - 10.5 K/L [facility] RBC 4.16 (L) 4.63 - 6.08 M/L [facility] Hemoglobin 13.5 (L) 13.7 - 17.5 GM/DL [facility] Hematocrit 39.3 (L) 40.1 - 51.0 % [facility] MCV 94.5 (H) 79.0 - 92.2 fL [facility] MCH 32.5 (H) 25.7 - 32.2 pg [facility] MCHC 34.4 32.3 - 36.5 GM/DL [facility] RDW 12.1 11.6 - 14.4 % [facility] Platelets 299 150 - 450 K/CU MM [facility] MPV 8.7 (L) 9.4 - 12.4 fL [facility] nRBC 0 0 - 0 /100 WBC [facility] % Neutros 65 % [facility] % Lymphs 26 % [facility] % Monos 8 % [facility] % Eos 0 % [facility] % Baso 0 % [facility] # Neutros 5.12 1.78 - 5.38 K/L [facility] # Lymphs 2.04 1.32 - 3.57 K/L [facility] # Monos 0.62 0.30 - 0.82 K/L [facility] # Eos 0.03 (L) 0.04 - 0.54 K/L [facility] # Baso 0.02 0.01 - 0.08 K/L [facility] Immature 1 0 - 1 % [facility] Granulocytes-Relative [facility] Specimen Blood Performing Organization Address City/[facility]/Zipcode Phone Number [address] [address] [facility] * Prothrombin time/INR (07/04/2017 6:06 AM MOHS SURGEON/GENERAL DERMATOLOGIST) Only the most recent of 2 results within the time period is included. Protime 14.7 11.7 - 14.7 seconds [facility] INR 1.2 <=5.9 [facility] Specimen Blood Narrative Performed At RECOMMENDED COUMADIN/WARFARIN INR THERAPY RANGES [facility] STANDARD DOSE: 2.0 - 3.0 Includes: PROPHYLAXIS for venous thrombosis, [facility] systemic embolization; TREATMENT for venous thrombosis and/or pulmonary embolus. HIGH RISK: Target INR is 2.5-3.5 for patients with mechanical heart valves. Within 24 hours, if on Coumadin Performing Organization Address City/[facility] Phone Number [address] [address] [facility] * Magnesium (07/04/2017 6:06 AM MOHS SURGEON/GENERAL DERMATOLOGIST) Only the most recent of 4 results within the time period is included. Magnesium 1.9 1.6 - 2.6 mg/dL [facility] Specimen Blood Performing Organization Address City/[facility]/Zipcode Phone Number [address] [address] [facility] * Basic metabolic panel (07/04/2017 6:06 AM MOHS SURGEON/GENERAL DERMATOLOGIST) Only the most recent of 5 results within the time period is included. Sodium 140 136 - 145 meq/L [facility] Potassium 4.0 3.5 - 5.1 meq/L [facility] Chloride 103 98 - 107 meq/L [facility] CO2 29 22 - 29 meq/L [facility] BUN 22 (H) 7 - 21 mg/dL [facility] Creatinine 1.03 0.57 - 1.25 mg/dL [facility] Glucose 105 70 - 105 mg/dL [facility] Calcium 8.9 8.4 - 10.2 mg/dL [facility] EGFR 71Comment: ESTIMATED GFR IS mL/min/1.73 sq m [facility] NOT ACCURATE CREATININE [facility] CLEARANCE IN PREDICTING GLOMERULAR FILTRATION RATE. ESTIMATED GFR IS NOT APPLICABLE FOR DIALYSIS PATIENTS. Specimen Blood Performing Organization Address City/State/Zipcode Phone Number [facility] [address] [place] [address] [facility] * ECHOCARDIOGRAM REPORT - SCAN (07/03/2017 3:21 PM MOHS SURGEON/GENERAL DERMATOLOGIST) Narrative Performed At * Transesophageal echo (07/03/2017 10:09 AM MOHS SURGEON/GENERAL DERMATOLOGIST) Ejection Fraction [facility] ECHO [facility]ART[facility] Narrative Performed At Transesophageal Echocardiography Report (JD) [facility]ART[facility] Demographics [facility] Patient Name NAFISA FALL Date of Study 07/03/2017 BENITO FELIZ [id number] Male Visit Number [id number] Room Number op Number Date of Birth1945Referring Physician Trent Nunez MD Age72 year(s)Central Supply Technician Samy Bae MD [facility] ician Fellow Jessica Holt MD Procedure Type [...] External Ris In - 07/03/2017 2:50 PM MOHS SURGEON/GENERAL DERMATOLOGIST Transesophageal Echocardiography Report (JD) Demographics Patient Name NAFISA FALL Date of Study 07/03/2017 BENITO FELIZ Gender Male Visit Number [id number] Race Unknown Room Number op Number Date of 1945 Referring Physician Trent Nunez MD Age 72 year(s) Central Supply Technician Samy Galaviz Interpreting Juan M Bae MD [...] with gating & 3d (07/03/2017 10:05 AM MOHS SURGEON/GENERAL DERMATOLOGIST) Narrative Performed At Addendum Begins [facility] REPORT STATUS:A Addendum: I agree with the previously described non vascular findings by Dr. Ordaz. Signed: Abe Chang MD Report Verified Date/Time:07/03/2017 15:20:50 Reading Location: [place] [address] Angio Body Reading Room Addendum Ends FINAL [...] by the interpreting physician using an independent (Blastbeat) workstation. Please refer to the contrast sheet scanned in the Mad Mimi system for the amount and route of [...] dictated regarding the non-vascular findings by the Vac Press Operator Radiologist. Signed: Morris Ordaz MD Report Verified Date/Time:07/03/2017 10:37:36 Reading Location: [place] [address] Cardiology MRI Procedure Note Interface, External Ris In - 07/03/2017 3:23 PM MOHS SURGEON/GENERAL DERMATOLOGIST Addendum Begins REPORT STATUS:A Addendum: I agree with the previously described non vascular findings by Dr. Ordaz. Signed: Abe Chang MD Report Verified Date/Time: 07/03/2017 15:20:50 Reading Location: [place] [address] Angio Body Reading Room Addendum Ends FINAL [...] by the interpreting physician using an independent (Blastbeat) workstation. Please refer to the contrast sheet [...] dictated regarding the non-vascular findings by the Vac Press Operator Radiologist. Signed: Morris Ordaz MD Report Verified Date/Time: 07/03/2017 10:37:36 Reading Location: [place] [address] Cardiology MRI Performing Organization Address City/State/Zipcode Phone Number [facility] * BUN and Creatinine (07/03/2017 9:08 AM MOHS SURGEON/GENERAL DERMATOLOGIST) BUN 21 7 - 21 mg/dL [facility] Creatinine 1.12 0.57 - 1.25 mg/dL [facility] EGFR 64Comment: ESTIMATED GFR IS mL/min/1.73 sq m [facility] NOT ACCURATE CREATININE [facility] CLEARANCE IN PREDICTING GLOMERULAR FILTRATION RATE. ESTIMATED GFR IS NOT APPLICABLE FOR DIALYSIS PATIENTS. Specimen Blood Performing Organization Address City/State/Zipcode Phone Number [address] [address] [facility] * aPTT (07/03/2017 9:08 AM MOHS SURGEON/GENERAL DERMATOLOGIST) PTT 25.2 22.5 - 36.0 seconds [facility] Specimen Blood Performing Organization Address City/[facility] Phone Number [place] [phone] [place] [address] [facility] * CBC (Hemogram only) (07/03/2017 9:08 AM MOHS SURGEON/GENERAL DERMATOLOGIST) WBC 8.4 3.5 - 10.5 K/L [facility] RBC 4.58 (L) 4.63 - 6.08 M/L [facility] Hemoglobin 14.8 13.7 - 17.5 GM/DL [facility] Hematocrit 43.1 40.1 - 51.0 % [facility] MCV 94.1 (H) 79.0 - 92.2 fL [facility] MCH 32.3 (H) 25.7 - 32.2 pg [facility] MCHC 34.3 32.3 - 36.5 GM/DL [facility] RDW 12.0 11.6 - 14.4 % [facility] Platelets 319 150 - 450 K/CU MM [facility] MPV 8.6 (L) 9.4 - 12.4 fL [facility] nRBC 0 0 - 0 /100 WBC [facility] Specimen Blood Performing Organization Address City/[facility]/Zipcode Phone Number [place] [phone] [place] [address] * Electrolytes (07/03/2017 9:08 AM MOHS SURGEON/GENERAL DERMATOLOGIST) Sodium 142 136 - 145 meq/L [facility] Potassium 4.5 3.5 - 5.1 meq/L [facility] Chloride 102 98 - 107 meq/L [facility] CO2 31 (H) 22 - 29 meq/L [facility] Specimen Blood Performing Organization Address [facility] Phone Number [address] * Phosphorus (05/25/2017 4:20 AM MOHS SURGEON/GENERAL DERMATOLOGIST) Only the most recent of 3 results within the time period is included. Phosphorus 2.7Comment: Specimen slightly 2.3 - 4.7 mg/dL [facility] Specimen Blood - Arm, Right Performing Organization Address [facility] Phone Number [address] * B-type Natriuretic Factor (BNP) (05/25/2017 4:20 AM MOHS SURGEON/GENERAL DERMATOLOGIST) BNP 52 0 - 100 pg/mL [facility] Specimen Blood - Arm, Right Performing Organization Address [facility] Phone Number [address] * Hepatic function panel (05/25/2017 4:20 AM MOHS SURGEON/GENERAL DERMATOLOGIST) Only the most recent of 2 results within the time period is included. Protein, Total 5.2 (L)Comment: Specimen 6.0 - 8.3 gm/dL [facility] slightly hemolyzed [facility] Albumin 2.9 (L)Comment: Specimen 3.5 - 5.0 g/dL [facility] slightly hemolyzed [facility] Total Bilirubin 1.0Comment: Specimen slightly 0.2 - 1.2 mg/dL [facility] Bilirubin, Direct 0.4Comment: Specimen slightly 0.1 - 0.5 mg/dL [facility] hemolyzed [facility] Alkaline Phosphatase 64 40 - 150 U/L [facility] AST 40 (H)Comment: Specimen 5 - 34 U/L [facility] slightly hemolyzed [facility] ALT 17Comment: Specimen slightly 6 - 55 U/L [facility] hemolyzed [facility] Specimen Blood - Arm, Right Performing Organization Address City/[facility]/Zipcode Phone Number [facility] [address] [place] [address] [facility] * XR chest 1 view portable / bedside (05/24/2017 12:21 PM MOHS SURGEON/GENERAL DERMATOLOGIST) Narrative Performed At FINAL REPORT RIS HISTORY [...] MD Report Verified Date/Time:05/24/2017 12:57:49 Reading Location: [address] Transitional Reading Room Procedure Note Interface, External Ris In - 05/24/2017 1:00 PM MOHS SURGEON/GENERAL DERMATOLOGIST FINAL REPORT HISTORY : sob. Comparison: None [...] Report Verified Date/Time: 05/24/2017 12:57:49 Reading Location: [facility] Transitional Reading Room Performing Organization Address City/State/Zipcode Phone Number [facility] * STOOL PATH CHARGE (05/23/2017 9:25 AM MOHS SURGEON/GENERAL DERMATOLOGIST) Pathogen exam charged Done [facility] Specimen Stool - Rectum Performing Organization Address City/[facility] Phone Number [facility] [address] [place] [address] [facility] * Shiga Toxin Screen (05/23/2017 9:25 AM MOHS SURGEON/GENERAL DERMATOLOGIST) Shiga toxin 1 Not detected Not detected [facility] Shiga toxin 2 Not detected Not detected [facility] Specimen Stool - Rectum Performing Organization Address [facility] Phone Number [facility] [address] [place] [address] [facility] * Clostridium difficile Toxin PCR (05/23/2017 9:25 AM MOHS SURGEON/GENERAL DERMATOLOGIST) C.Diff Toxin, PCR Not Detected Not Detected [facility] Specimen Stool - Stool Narrative Performed At This qualitative real-time polymerase chain reaction assay detects the tcdB [facility] gene, encoded on the C.difficile pathogenicity locus (PaLoc).The product of [facility] tcdB, toxin B, is a cytotoxin essential [...] result is not recommended. Performing Organization Address City/[facility] Phone Number [facility] [phone] [place] [address] [facility] * Urinalysis w/Microscopic (05/23/2017 9:25 AM MOHS SURGEON/GENERAL DERMATOLOGIST) Only the most recent of 2 results within the time period is included. Color, UA Yellow [facility] Clarity, UA Clear [facility] Specific Anita, UA 1.020 1.001 - 1.035 [facility] pH, UA 5.0 5.0 - 8.0 [facility] Protein, UA 20 mg/dL (A) Negative [facility] Glucose, UA Negative Negative [facility] [facility] Ketones, UA Trace (A) Negative [facility] Bilirubin, UA Negative Negative [facility] Blood, UA Negative Negative [facility] Nitrite, UA Negative Negative [facility] Leukocytes, UA Negative Negative [facility] Urobilinogen, UA 0.2 0.2 - 1.0 mg/dL [facility] RBC, UA 0 /HPF [facility] WBC, UA 1 /HPF [facility] Squam Epithel, UA <1 /HPF [facility] Hyaline Casts, UA 1 /LPF [facility] Specimen Source Urine, Straight Catheter [facility] Specimen Urine - Urine, Straight Catheter Performing Organization Address [facility] Phone Number [place] [phone] * Urine culture (05/23/2017 9:25 AM MOHS SURGEON/GENERAL DERMATOLOGIST) Result >100,000 col/mL skin virginie [facility] Specimen Urine - Urine, Straight Catheter Performing Organization Address [facility] [place] [address] [phone] * Stool culture + Shiga toxin (05/23/2017 9:25 AM MOHS SURGEON/GENERAL DERMATOLOGIST) Result No Salmonella, Shigella or [facility] Specimen Stool - Rectum Performing Organization Address [facility] Phone Number [facility] [address] [place], [place] [phone] [facility] * Blood culture (05/22/2017 6:43 PM MOHS SURGEON/GENERAL DERMATOLOGIST) Only the most recent of 2 results within the time period is included. Result No growth in 5 days [facility] Specimen Blood - Arm, Right Performing Organization Address [facility] Phone Number [facility] [address] [place], [place] [phone] [facility] * PT/aPTT (05/22/2017 5:15 PM MOHS SURGEON/GENERAL DERMATOLOGIST) Protime 11.0 9.8 - 12.0 seconds [facility], [facility], [facility] INR 1.0 <=5.9 [facility], [facility] [place], [facility] PTT 20.5 (L) 25.8 - 34.[address] [facility] [place], [facility] Specimen Blood Narrative Performed At RECOMMENDED COUMADIN/WARFARIN INR THERAPY RANGES [facility] STANDARD DOSE: 2.0 - 3.0 Includes: PROPHYLAXIS for venous thrombosis, [facility] systemic embolization; TREATMENT for venous thrombosis and/or pulmonary embolus. [place], [facility] HIGH RISK: Target INR is 2.5-3.5 for patients with mechanical heart valves. [facility], [facility] Performing Organization Address [facility] Phone Number [facility] [address] [place] [address] [facility], [facility], [facility] * Lipase (05/22/2017 5:15 PM MOHS SURGEON/GENERAL DERMATOLOGIST) Lipase 252 (H) 40 - 240 U/L [facility], [facility] [place], [facility] Specimen Blood Performing Organization Address [facility] Phone [facility] [address] [place] [address] [facility], [facility], [facility] * CT abdomen pelvis without contrast (05/22/2017 4:54 PM MOHS SURGEON/GENERAL DERMATOLOGIST) Narrative Performed At FINAL REPORT [email or web address] [facility] CT abdomen and pelvis without intravenous contrast. [...] hernia. 5. Bilateral L5 spondylolysis. Signed: Bo Bea MD Report Verified Date/Time:05/22/2017 17:23:33 Reading Location: [facility] C013X [facility] Consult Reading Room Procedure Note Interface, External Ris In - 05/22/2017 5:25 PM MOHS SURGEON/GENERAL DERMATOLOGIST FINAL REPORT CT abdomen and pelvis without [...] Report Verified Date/Time: 05/22/2017 17:23:33 Reading Location: [facility] C0X [facility] Consult Reading Room Performing Organization Address City/State/Zipcode Phone Number GE RIS after 05/13/2017 Insurance Payer Benefit Subscriber ID Type Phone Address Plan / Group [employer] TEX[employer] x[facility] Cont[facility] Advance Directives For more information, please contact: [address] [address] Date Inactivated Comments Code Status Date Activated 07/05/2017 12:38 PM Full Code 07/04/2017 5:47 AM This code status was determined by: Patient 07/03/2017 11:03 AM Full Code 07/03/2017 10:35 AM This code status was determined by: Patient 05/25/2017 2:01 PM Full Code 05/23/2017 8:27 AM This code status was determined by: Patient
[2018-05-14 18:40] VITALS: BP 134/74
[2018-05-14] MEDS: SODIUM CHLORIDE 0.9% 1000ML 1,000 ML IV SCH (18:54)
[2018-05-14] MEDS ORDERED: ATORVASTATIN CA20 MG PO (19:10)
[2018-05-14] MEDS ORDERED: LOSARTAN POTAS100 MG PO (19:10)
[2018-05-14] MEDS ORDERED: OMEPRAZOLE40 MG (19:10)
[2018-05-14] MEDS ORDERED: CENTRUM SILVER1 EAC3 (19:10)
[2018-05-14] MEDS ORDERED: FLUNISOLIDE25 ML (19:10)
[2018-05-14 23:10] VITALS: BP 126/63
[2018-05-14 23:40] VITALS: BP 126/63
[2018-05-14] MEDS: MORPHINE SULFATE 2 MG/ML SYR IV PRN (23:59)
[2018-05-15] VITALS (7 sets, daily range): BP systolic 126–157; BP diastolic 60–75
[2018-05-15 00:22] LABS: CREATINE KINASE MB 0.8 ng/mL (0-5.0)
[2018-05-15] MEDS: ONDANSETRON HCL INJ 2 MG/ML VIAL IV PRN ×3 (04:40→12:48)
[2018-05-15] MEDS: MORPHINE SULFATE 2 MG/ML SYR IV PRN ×2 (04:40→12:47)
[2018-05-15] MEDS: SODIUM CHLORIDE 0.9% 1000ML 1,000 ML IV SCH ×2 (04:40→09:15)
[2018-05-15 06:50] LABS: BASOPHILS % 0.3 % (0.0-1.0); EOSINOPHILS # (AUTO) 0.2 (0.0-0.4); EOSINOPHILS % 1.8 % (0.0-6.0); HEMATOCRIT 34.8 % (38.2-49.6); HEMOGLOBIN 12.2 g/dL (14.0-18.0); LYMPHOCYTES # (AUTO) 1.9 (1.0-3.2); LYMPHOCYTES % 21.3 % (18.0-39.1); MEAN CORPUSCULAR HEMOGLOBIN 32.6 pg (28-32); MEAN CORPUSCULAR HGB CONC 35.1 g/dL (31-35); MONOCYTES # (AUTO) 0.8 (0.2-0.8); MONOCYTES % 8.6 % (4.4-11.3); NEUTROPHILS # (AUTO) 5.9 (2.1-6.9); NEUTROPHILS % 67.8 % (38.7-80.0); PLATELET COUNT 222 x10e3/uL (140-360); RED BLOOD COUNT 3.74 x10e6/uL (4.3-5.7); RED CELL DISTRIBUTION WIDTH 12.2 % (11.7-14.4)
[2018-05-15 07:02] LABS: ANION GAP 10.8 mmol/L (8-16); BLOOD UREA NITROGEN 16 mg/dL (7-26); BUN/CREATININE RATIO 16 (6-25); CALCIUM 8.8 mg/dL (8.4-10.2); CARBON DIOXIDE 29 mmol/L (22-29); CHLORIDE 107 mmol/L (98-107); EST GLOMERULAR FILTRATION RATE > 60 ML/MIN (60-); GLUCOSE 109 mg/dL (74-118); POTASSIUM 3.8 mmol/L (3.5-5.1); SODIUM 143 mmol/L (136-145)
[2018-05-15 07:07] LABS: INR 0.89; PROTHROMBIN TIME 12.9 seconds (11.9-14.5)
[2018-05-15 07:08] LABS: PARTIAL THROMBOPLASTIN TIME 27.7 seconds (23.8-35.5)
--- NOTE | 2018-05-15 07:13 | Diagnostic Imaging Report ---
Examination: Single AP view of the chest. COMPARISON: 05/14/2018 INDICATION: Chest pain DISCUSSION: Lungs remain well-inflated. Patchy and linear opacity in the lingula is unchanged. No new consolidation or effusion. Stable cardiomediastinal contour when accounting for portable, AP technique. No acute osseous abnormalities. Right humeral surgical anchors. IMPRESSION: Stable lingular airspace opacity which may reflect atelectasis/scar or developing pneumonia as previously discussed. Signed by: Dr. Guillaume Law M.D. on 05/15/2018 7:09 AM
[2018-05-15 07:28] LABS: CREATINE KINASE MB 0.8 ng/mL (0-5.0)
[2018-05-15] MEDS ORDERED: LOSARTAN POTASSIUM 100 MG TAB PO SCH (09:00)
[2018-05-15] MEDS ORDERED: CEFTRIAXONE SOD 1 GM VIAL IV ONE (09:00)
[2018-05-15] MEDS: LOSARTAN POTASSIUM 100 MG TAB PO SCH (13:00)
[2018-05-15] MEDS ORDERED: HYDROCODONE/APAP 7.5MG-325MG 1 EA TAB PO PRN (16:00)
[2018-05-15] MEDS ORDERED: CEFTRIAXONE SOD 1 GM/NS 50 ML 50 ML IV SCH (16:00)
[2018-05-15] MEDS ORDERED: AZITHROMYCIN 250MG/NS 100 ML 100 ML IV SCH (16:00)
[2018-05-15] MEDS: AZITHROMYCIN 250MG/NS 100 ML 100 ML IV SCH (16:15)
--- NOTE | 2018-05-15 16:34 | History and Physical ---
CHIEF COMPLAINT: Increasing right-sided upper chest pain radiating to the upper neck area associated with some headaches. Patient also has some cough. Duration of his symptoms for the past 3 weeks. HISTORY: This is a 73-year-old male not feeling well for the past 3 weeks. The patient came to see his family doctor and did receive some treatment, but did not improve. The patient subsequently came to the hospital for symptom management. Here the patient had multiple workup done in the emergency room. The patient complained of some vague right-sided chest pain radiating to his neck area. He also had some cough and some low-grade fever. The patient's CT scan showed the setting of nonspecific bronchitis. He had a lingular atelectasis versus scarring, superimposed pneumonia. Maybe consideration in appropriate setting. Patient also had other of multiple tests done. He had a potassium level of 3.1. His urinalysis was unremarkable. Patient is otherwise stable at this time. The patient will be admitted for further treatment. PAST MEDICAL HISTORY: Atrial fibrillation, status post cardiac ablation back in September 2017. 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 SOCIAL HISTORY: The patient does not smoke. Mild social drinker. No recreational drug use. ALLERGIES: , ACIPHEX CREAM. HOME MEDICATIONS: Lipitor, nasal spray, losartan, omeprazole. REVIEW OF SYSTEMS: As mentioned above. PHYSICAL EXAMINATION VITAL SIGNS: Temperature is 98, blood pressure 157/75, pulse rate 61, respirations 18. GENERAL: The patient is not in acute distress. He is awake. HEENT: Normocephalic, atraumatic and anicteric. NECK: Supple grossly. PULMONARY: Bilateral coarses and rhonchi. CARDIOVASCULAR: Regular rate and rhythm. ABDOMEN: Soft and unremarkable. EXTREMITIES: No cyanosis or edema. NEUROLOGIC: No gross focal deficit. LABORATORY: Sodium 143, potassium 3.8, chloride 107, bicarb 29, BUN 16, creatinine 1, glucose 109. WBC is 8.4, hemoglobin 12.2, hematocrit 34.8 and platelets is 222,000. IMPRESSION 1. Symptoms consistent with community-acquired pneumonia given symptoms lasting for the past week or so. The chest x-ray showed possible bronchitis versus early pneumonia. 2. Abnormal electrocardiogram which was done in the emergency room and also in the patient's primary care physician's office as well. PLAN: Antibiotics of Rocephin and azithromycin for now. Consultation with Dr. Herring. Continue with home medications. Check lab work. Check influenza nasal swab. Claritin and Flonase. Will monitor the patient closely. Job#: [id number] RI
[2018-05-15] MEDS: ATORVASTATIN 20 MG TAB PO SCH (20:43)
--- NOTE | 2018-05-15 23:27 | Diagnostic Imaging Report ---
EXAM: CT CHEST WO INDICATION: Chest pain radiating from left shoulder question pneumonia COMPARISON: None TECHNIQUE: Multidetector CT scanning of the chest was performed. Coronal and sagittal multiplanar reformations were obtained. Dose modulation, iterative reconstruction, and/or weight based adjustment of the mA/kV was utilized to reduce the radiation dose to as low as reasonably achievable. Routine protocol performed. IV Contrast: None CTDIvol has been reviewed. It is below the limits set by the Radiation Protocol Committee (RPC). FINDINGS: LUNGS AND AIRWAYS: The trachea and major bronchi are patent. Bibasilar bronchial thickening and traction bronchiectasis. Mild biapical scarring. Bibasilar atelectasis. Mild lingular atelectasis/scarring. PLEURA: No effusions or pneumothorax. HEART, MEDIASTINUM, VESSELS: The heart is within normal size limits. No abnormal pericardial effusion. Coronary artery calcifications. Mild calcifications of the thoracic aorta without aneurysm. No mediastinal mass or lymphadenopathy. UPPER ABDOMEN: Left hepatic lobe simple 5.2 cm cyst. Caudate lobe 1.4 cm cyst. MUSCULOSKELETAL: Right humeral head ligamentous screw. IMPRESSION: Bibasilar and lingular bronchial thickening, traction bronchiectasis and atelectasis. Signed by: Dr. Genie Marie M.D. on 05/15/2018 11:24 PM
--- NOTE | 2018-05-15 23:34 | Consultation ---
DATE OF CONSULTATION: May 15, 2018 REFERRING PHYSICIAN: Dr. Brady Cash. REASON FOR CONSULTATION: Chest pain. HISTORY OF PRESENT ILLNESS: Mr. Fall is a 73-year-old man with past medial history significant for atrial fibrillation status post PVI in September 2017, also history of aflutter ablation. He was seen by outpatient manager integrated in [facility] and discontinued anticoagulation after monitoring was performed as outpatient revealing no recurrent arrhythmia. He presents to [facility] with 3 weeks onset of malaise, fatigue, and subjective fevers. He noted right-sided discomfort on the neck radiating to the chest area, worse with cough and position upright, incline forward, unaffected by exertion. No reports of dyspnea, syncope or palpitations. REVIEW OF SYSTEMS: A 12-system review is negative except for as noted above. ALLERGIES: ACIPHEX CREAM. SOCIAL HISTORY: No smoking. Social drinker. No drug use. FAMILY HISTORY: Noncontributory. CARDIOVASCULAR MEDICATIONS: Currently in EMR include losartan 100 mg daily, atorvastatin 20 mg at bedtime. Patient is on ceftriaxone and azithromycin. STUDIES: Reviewed. White blood cells 8.7, hemoglobin 12.2, platelets 222. INR 0.89. Sodium 143, potassium 3.8, chloride 107, bicarbonate 29, BUN 16, creatinine 1, glucose 109, calcium 8.8. Troponin I 0.009, then 0.002, 0.001. Total protein 7.4, albumin 3.7. AST 20, ALT 17. Influenza antigen A and B are negative. His chest x-ray shows stable lingular airspace opacity which may reflect atelectasis, scar or developing pneumonia. EKG, normal sinus rhythm. Normal EKG. ASSESSMENT 1. Atypical chest pain with pleuritic features. 2. Hypertension and dyslipidemia. 3. Upper respiratory tract infection type symptoms. RECOMMENDATIONS 1. Rule out for [place] with serial cardial enzymes. 2. Pericarditis within the differential. We will obtain echocardiogram. Agree with treatment for presumptive pneumonia given x-ray findings. At this point in time, no additional cardiac workup is advised. Can initiate aspirin 81 mg daily and consider outpatient stress test at a later date. Thank you for the opportunity to participate in the care of Mr. Fall. We will follow closely with you. Job#: [id number] VAS
[2018-05-16] VITALS (7 sets, daily range): BP systolic 113–143; BP diastolic 56–88
[2018-05-16 05:14] LABS: BASOPHILS % 0.4 % (0.0-1.0); EOSINOPHILS # (AUTO) 0.1 (0.0-0.4); EOSINOPHILS % 1.3 % (0.0-6.0); HEMATOCRIT 33.3 % (38.2-49.6); HEMOGLOBIN 11.5 g/dL (14.0-18.0); LYMPHOCYTES % 28.5 % (18.0-39.1); MEAN CORPUSCULAR HEMOGLOBIN 32.2 pg (28-32); MEAN CORPUSCULAR HGB CONC 34.5 g/dL (31-35); MEAN CORPUSCULAR VOLUME 93.3 fL (81-99); MONOCYTES # (AUTO) 0.8 (0.2-0.8); MONOCYTES % 10.9 % (4.4-11.3); NEUTROPHILS # (AUTO) 4.1 (2.1-6.9); NEUTROPHILS % 58.6 % (38.7-80.0); PLATELET COUNT 219 x10e3/uL (140-360); RED BLOOD COUNT 3.57 x10e6/uL (4.3-5.7); RED CELL DISTRIBUTION WIDTH 12.1 % (11.7-14.4)
[2018-05-16 05:37] LABS: ANION GAP 10.6 mmol/L (8-16); BLOOD UREA NITROGEN 15 mg/dL (7-26); BUN/CREATININE RATIO 15 (6-25); CALCIUM 8.8 mg/dL (8.4-10.2); CARBON DIOXIDE 28 mmol/L (22-29); CHLORIDE 106 mmol/L (98-107); CREATININE, SERUM 1.01 mg/dL (0.72-1.25); EST GLOMERULAR FILTRATION RATE > 60 ML/MIN (60-); GLUCOSE 105 mg/dL (74-118); POTASSIUM 3.6 mmol/L (3.5-5.1); SODIUM 141 mmol/L (136-145)
[2018-05-16] MEDS: ACETAMINOPHEN 325 MG TAB PO PRN (05:40)
[2018-05-16] MEDS: LOSARTAN POTASSIUM 100 MG TAB PO SCH (09:00)
[2018-05-16] MEDS: CEFTRIAXONE SOD 1 GM/NS 50 ML 50 ML IV SCH (09:00)
[2018-05-16] MEDS: ASPIRIN 81 MG CHEW TAB PO SCH (09:00)
[2018-05-16] MEDS: PANTOPRAZOLE SOD 40 MG TABEC PO SCH (09:00)
--- NOTE | 2018-05-16 11:54 | Progress Note ---
DATE: May 16, 2018 CARDIOLOGY PROGRESS NOTE SUBJECTIVE: Denies chest pain or shortness of breath. OBJECTIVE VITAL SIGNS: Temperature 97.9, heart rate 68, respiratory rate 18, blood pressure 128/58, and O2 sat 95% on room air. GENERAL: In no acute distress, alert. NECK: No JVD. CHEST: Clear to auscultation. CARDIOVASCULAR: Regular rate and rhythm. Normal S1 and S2. No S3, no S4. ABDOMEN: Soft, nontender, and nondistended. EXTREMITIES: No edema. CARDIOVASCULAR MEDICATIONS: Reviewed. 1. Aspirin 325 mg daily. 2. Losartan 100 mg daily. 3. Atorvastatin 20 mg q.h.s. 4. Azithromycin and ceftriaxone. STUDIES: Reviewed. White blood cells 6.9, hemoglobin 11.5, platelets 219. INR is 0.89. Creatinine is 1.01. Sodium 141, potassium 3.6, chloride 106, bicarbonate 28, BUN 15, glucose 105, calcium 8.82. Troponin is negative. TELEMETRY: Reviewed and normal sinus rhythm. ASSESSMENT 1. Atypical chest pain with pleuritic features. 2. Hypertension. 3. Dyslipidemia. 4. Upper respiratory tract infection type symptoms. RECOMMENDATIONS 1. Ruled out for heart attack with serial enzymes. 2. If her symptoms improved, continue current management. Undergoing treatment for presumptive pneumonia given x-ray findings and patient's symptoms. 3. Echocardiogram ordered if plan for discharge can re-schedule as outpatient, currently not done yet. 4. Outpatient stress test at a later date is advised. Job#: [id number] TERRELL
[2018-05-16] MEDS ORDERED: ALBUTEROL/IPRATROPIUM 3 ML NEB NEB PRN (12:15)
[2018-05-16] MEDS: GUAIFENESIN 600 MG TAB PO SCH ×2 (12:15→16:57)
[2018-05-16] MEDS ORDERED: ALBUTEROL/IPRATROPIUM 3 ML NEB NEB SCH (12:15)
[2018-05-16] MEDS: METHYLPREDNISOLONE SOD SUCC 40 MG/ML VIAL IV SCH ×3 (12:30→20:57)
[2018-05-16] MEDS: AZITHROMYCIN 250MG/NS 100 ML 100 ML IV SCH (16:15)
[2018-05-16] MEDS: ATORVASTATIN 20 MG TAB PO SCH (20:57)
[2018-05-17] VITALS: BP 137/61
[2018-05-17] MEDS: ACETAMINOPHEN 325 MG TAB PO PRN (01:25)
[2018-05-17 04:00] VITALS: BP 119/20
[2018-05-17 05:21] LABS: BASOPHILS % 0.1 % (0.0-1.0); HEMATOCRIT 34.8 % (38.2-49.6); HEMOGLOBIN 12.3 g/dL (14.0-18.0); LYMPHOCYTES # (AUTO) 0.9 (1.0-3.2); LYMPHOCYTES % 10.3 % (18.0-39.1); MEAN CORPUSCULAR HGB CONC 35.3 g/dL (31-35); MEAN CORPUSCULAR VOLUME 90.6 fL (81-99); MONOCYTES # (AUTO) 0.2 (0.2-0.8); MONOCYTES % 1.8 % (4.4-11.3); NEUTROPHILS # (AUTO) 7.3 (2.1-6.9); NEUTROPHILS % 87.4 % (38.7-80.0); PLATELET COUNT 261 x10e3/uL (140-360); RED BLOOD COUNT 3.84 x10e6/uL (4.3-5.7); RED CELL DISTRIBUTION WIDTH 11.7 % (11.7-14.4)
[2018-05-17 05:52] LABS: ANION GAP 13.8 mmol/L (8-16); BLOOD UREA NITROGEN 21 mg/dL (7-26); BUN/CREATININE RATIO 21 (6-25); CALCIUM 9.2 mg/dL (8.4-10.2); CARBON DIOXIDE 25 mmol/L (22-29); CHLORIDE 104 mmol/L (98-107); CREATININE, SERUM 1.02 mg/dL (0.72-1.25); EST GLOMERULAR FILTRATION RATE > 60 ML/MIN (60-); GLUCOSE 148 mg/dL (74-118); POTASSIUM 3.8 mmol/L (3.5-5.1); SODIUM 139 mmol/L (136-145)
[2018-05-17] MEDS: METHYLPREDNISOLONE SOD SUCC 40 MG/ML VIAL IV SCH (06:16)
[2018-05-17 08:00] VITALS: BP 106/52
[2018-05-17] MEDS: CEFTRIAXONE SOD 1 GM/NS 50 ML 50 ML IV SCH (09:00)
[2018-05-17] MEDS: GUAIFENESIN 600 MG TAB PO SCH (09:00)
[2018-05-17] MEDS: PANTOPRAZOLE SOD 40 MG TABEC PO SCH (09:00)
[2018-05-17] MEDS: ASPIRIN 81 MG CHEW TAB PO SCH (09:00)
[2018-05-17] MEDS: LOSARTAN POTASSIUM 100 MG TAB PO SCH (09:00)
[2018-05-17 10:34] VITALS: BP 106/52
[2018-05-17] MEDS ORDERED: CLARITIN-D 241 EACH PO (11:22)
[2018-05-17] MEDS ORDERED: AZITHROMYCIN250 MG PO (11:23)
[2018-05-17] MEDS ORDERED: SINGULAIR10 MG PO (11:23)
[2018-05-17] MEDS ORDERED: PREDNISONE10 MG PO (11:24)
[2018-05-17] MEDS ORDERED: TESSALON PERLE100 MG (11:25)
[2018-05-17 12:33] VITALS: BP 143/68
== END 2018-05-17 12:56 | disposition home or self-care (01) | DRG 195 ==
LOC: ER 14:29 → ERHOLD 17:15 → MED/SURG2 23:21 → OBSVTOIN 05-15 15:52
PROVIDERS: ADMIT Internal Medicine; ATTEND Internal Medicine
DX: J18.9 Pneumonia, unspecified organism (principal); I48.91 Unspecified atrial fibrillation; Z79.01 Long term (current) use of anticoagulants; R94.31 Abnormal electrocardiogram [ECG] [EKG]; I10 Essential (primary) hypertension; J06.9 Acute upper respiratory infection, unspecified; J20.9 Acute bronchitis, unspecified; R09.02 Hypoxemia; E78.5 Hyperlipidemia, unspecified; E87.6 Hypokalemia; R07.89 Other chest pain
CPT/HCPCS: 36415; 71045; 71046; 71250; 80048; 80053; 81001; 82550; 82553; 84443; 84484; 85025; 85610; 85730; 87400; 93005; 93306; 99284; G0378; J0456; J0696; J2270; J2405; J2920; J7030